=== PATIENT | male | born 1940 | race Caucasian/White ===

== ENCOUNTER 2018-06-08 17:13 | Inpatient (IN) | payer MEDICARE ==
[2018-06-08] MEDS ORDERED: IPRATROPIUM-ALBUTEROL 3 ML NEB INHALATION STA (17:38)
[2018-06-08] MEDS ORDERED: methylPREDNISolone SOD SUCCI 125 MG/2 ML VIAL IV STA (17:38)
--- NOTE | 2018-06-08 17:57 | ED ---
General Adult HPI - General Chief complaint: Shortness of Breath Stated complaint: SOB, abn labs Time Seen by Provider: 06/08/18 17:18 Source: patient, EMS Mode of arrival: EMS Limitations: no limitations - History of Present Illness Initial comments: This 78-year-old white male presents with a complaint of some shortness of breath. He states that it initially occurred at approximately 1 AM today. He did have a cough. He had only very minimal production. He states that he had some midsternal chest pain or pressure associated with this as well. His symptoms seemed to improve at home. He states that he did not take any nitroglycerin. She then went to dialysis today and states that he became very weak during dialysis and had additional chest pain and shortness of breath. He states that he was unable to ambulate afterwards so came to the emergency department at [facility] for further evaluation. They did a full workup at their facility including laboratory, EKGs, echocardiogram, and chest x-ray. They did find that he had an elevated troponin as well as an elevated BNP, a decreased ejection fraction, and signs of congestive heart failure on his chest x-ray. They sent him to our emergency department for further evaluation as his troponin did elevate at their facility. He normally will have his cardiac and nephrology care out of our hospital. He states that he feels much improved at this time. He has no further shortness of breath or chest pain. He is denying any leg pain or swelling. He does relate that he had a partial amputation of his right thumb due to a saw accident this past week. He is seeing Dr. Mcdonough for this. He does relate a long cardiac history with 3 or 4 previous cardiac stents and sees Dr. Negron. He does relate that he has regular stress test but is unsure of the last time that he had a heart catheterization and stent. He states that it is been quite some time. - Related Data Home Medications Medication Instructions Recorded Confirmed Aspirin 325 mg PO Q48H 08/30/14 06/08/18 Atorvastatin [Lipitor] 40 mg PO HS 08/30/14 06/08/18 Clopidogrel [Plavix] 75 mg PO DAILY 08/30/14 06/08/18 Ezetimibe [Zetia] 10 mg PO DAILY 08/30/14 06/08/18 Isosorbide Mononitrate [Imdur] 60 mg PO DAILY 08/30/14 06/08/18 Mesalamine [Asacol Hd] 800 mg PO AC-TID 08/30/14 06/08/18 [place]-3 Fatty Acids/Fish Oil [Fish 1 tab PO BID 08/30/14 06/08/18 Oil 1,000 mg Softgel] Omeprazole [PriLOSEC] 20 mg PO HS 08/30/14 06/08/18 Vit C/E/Zn/Coppr/Lutein/Zeaxan 1 tab PO BID 08/30/14 06/08/18 [Preservision Areds 2 Softgel] Allopurinol [Zyloprim] 100 mg PO BID 06/08/18 06/08/18 Calcium Carb-Vit D 500Mg-200Un 1 tab PO BID 06/08/18 06/08/18 [Oscal 500+D] Carvedilol [Coreg] 6.25 mg PO BID 06/08/18 06/08/18 Allergies Allergy/AdvReac Type Severity Reaction Status Date / Time iron Allergy Nausea & Verified 06/08/18 18:33 Vomiting warfarin sodium Allergy Unknown Verified 06/08/18 18:33 [From Coumadin] Review of Systems ROS Statement: Those systems with pertinent positive or pertinent negative responses have been documented in the HPI. ROS Other: All systems not noted in ROS Statement are negative. 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 Past Anesthesia/Blood Transfusion Reactions: No Reported Reaction Date of Last Stent Placement:: unk Type of Cardiac Device: Permanent Pacemaker, AICD Device Placement Date:: unk Past Psychological History: No Psychological Hx Reported Smoking Status: Former smoker Past Alcohol Use History: None Reported Past Drug Use History: None Reported - Past Family History Mother Family Medical History: Cancer, Diabetes Mellitus, Myocardial Infarction ([place]) Father Family Medical History: CVA/TIA General Exam - General Exam Comments Initial Comments: GENERAL: The patient is well nourished and well hydrated. VITAL SIGNS: Heart rate, blood pressure, respiratory rate reviewed as recorded in nurse's notes. EYES: Pupils are round and reactive. Extraocular movements are intact. No conjunctival / lid redness or swelling. ENT: No external evidence of injury, swelling, or ecchymosis. Airway is patent. Throat is clear. NECK: Nontender. No swelling or evidence of injury. No subcutaneous emphysema. Trachea is midline. No thyroid mass. HEART: Regular rate and rhythm. Good peripheral pulses. No peripheral edema or tenderness noted. LUNGS/CHEST: There is mild wheezing noted bilaterally. No ecchymosis, subcutaneous emphysema, or tenderness. ABDOMEN: Abdomen soft without tenderness. No palpable masses or organomegaly. No peritoneal signs. No abdominal wall swelling or ecchymosis. EXTREMITIES: The patient is a complex bandage noted to his right thumb which is not removed at this time. Normal muscle tone and function. No thoracolumbar tenderness. NEUROLOGIC: Sensation is grossly intact. Cranial nerve exam reveals face is symmetrical, tongue is midline, speech is clear. SKIN: No abrasions or ecchymosis is noted. No induration or masses noted. PSYCHIATRIC: Alert and oriented. Appropriate behavior and judgment. Limitations: no limitations Course Vital Signs 06/08/18 06/08/18 06/08/18 17:20 18:34 18:40 Temperature 98.5 F Pulse Rate 96 97 104 H Respiratory 20 Rate Blood Pressure 101/72 O2 Sat by Pulse 99 Oximetry 06/08/18 06/08/18 19:19 20:20 Temperature 97.9 F Pulse Rate 110 H 110 H Respiratory 19 19 Rate Blood Pressure 119/78 118/73 O2 Sat by Pulse 98 98 Oximetry Medical Decision Making - Medical Decision Making The patient is seen and examined. All diagnostics are reviewed. He is placed on surveillance monitor which appears to show an atrial fibrillation with slight elevation in heart rate. The EKG shows a heart rate of 109 with a atrial fibrillation with rapid ventricular response rhythm. There is a low voltage QRS. There is a QRS duration of 114 and QTc interval of 503. The patient is continued on 2 L of oxygen per nasal cannula. Does appear as though he did receive aspirin at the previous facility. He also receives some Lopressor intravenously at 1452. All records from transferring facility are reviewed as well. It is felt as though he does have a degree of fluid overload/congestive heart failure. He also apparently does have an elevation of his troponin at 0.329 initially and 0.419 afterwards. The creatinine is elevated at 3.9 from [facility]. The BNP is elevated at 145,000. It is felt as though he would require admission to the hospital for further treatment. An additional troponin is ordered and the level is elevated at 0.5. This is increased as compared to the previous 2. He'll be placed on heparin as well. He will require cardiology consultation. The case is discussed with Dr. Canas. He would like us to obtain an echocardiogram at our facility in the a.m. But is otherwise agreeable with current care plan. The case is discussed with Dr. Grant and he is agreeable with admission. It is felt as though the patient overall is quite fragile. He has multiple significant comorbidities. Is felt that he does have a non-ST elevation myocardial infarction as well. He is fluid overload. Nephrology also be consult at for further evaluation in regard to his end-stage renal failure and dialysis. Disposition Clinical Impression: Congestive heart failure, Cardiomyopathy, Dyspnea, Chest pain, Unstable angina , Atrial fibrillation with rapid ventricular response, COPD (chronic obstructive pulmonary disease), NSTEMI (non-ST elevated myocardial infarction), ESRF (end stage renal failure), Amputation of thumb, right Disposition: ADMITTED IP TO THIS HOSP Condition: Fair Is patient prescribed a controlled substance at d/c from ED?: No Time of Disposition: 18:05 Decision Date: 06/08/18 Decision Time: 18:05
[2018-06-08] MEDS ORDERED: NITROGLYCERIN OINT 1 INCH/GM PACKET TOPICAL STA (18:05)
[2018-06-08] MEDS ORDERED: HEPARIN SODIUM,PORCINE 5,000 UNIT/ML 1 ML VIAL IV PRN (18:06)
[2018-06-08] MEDS ORDERED: HEPARIN SODIUM,PORCINE 5,000 UNIT/ML 1 ML VIAL IV ONE (18:06)
[2018-06-08] MEDS ORDERED: HEPARIN SOD,PORK IN 0.45% NACL 25,000 UNIT in 0.45% NACL 1 250ML.BAG IV SCH (18:15)
[2018-06-08] MEDS ORDERED: NITROGLYCERIN SL TABS 0.4 MG TAB SUBLINGUAL PRN (18:27)
[2018-06-08] MEDS ORDERED: ASPIRIN 325 MG TAB PO SCH (18:45)
[2018-06-08] MEDS ORDERED: NON-FORMULARY DRUG (Omega-3 Fatty Acids/Fish Oil [Fish Oil 1,000 Mg Softgel] 1 TAB) PO SCH (21:00)
[2018-06-09] MEDS: CALCIUM CARB-VIT D 500MG-200UN 1 EACH TAB PO SCH ×3 (00:14→19:51)
[2018-06-09] MEDS: VIT A,C & E-LUTEIN-MINERALS 1 EACH TAB PO SCH ×3 (00:14→19:56)
[2018-06-09] MEDS: ATORVASTATIN 40 MG TAB PO SCH ×2 (00:14→19:51)
[2018-06-09] MEDS: ALLOPURINOL 100 MG TAB PO SCH ×3 (00:15→19:56)
--- NOTE | 2018-06-09 00:43 | HP ---
HISTORY AND PHYSICAL DATE OF ADMISSION: 06/08/2018. DATE OF SERVICE: 06/08/2018. PRESENT COMPLAINT: Short of breath. HISTORY OF PRESENTING COMPLAINT: This is a pleasant 78-year-old patient Dr. Arellano with an extensive medical history. Chronic stable medical conditions include end-stage kidney disease on hemodialysis Thursday, , Thursday, osteoarthritis, atrial fibrillation, mineral bone disease, diabetes, peripheral neuropathy, anxiety, hyperlipidemia, coronary artery disease with stent, permanent pacemaker. The patient lives alone. Does use a walker to get about. The patient was getting hemodialyzed today and became short of breath, congested, and 911 was called. The patient presented to [facility]. He had no chest pain. Chest x- ray showed mild congestive heart failure. Troponin was 0.329. EKG showed sinus rhythm, atrial fibrillation, and patient was transferred down here. Cardiology and Nephrology were consulted. The patient, for the last 2 days, has had decreased appetite, tired and run down. Denies any fevers or chills. REVIEW OF SYSTEMS: CONSTITUTIONAL: Tired. HEENT: Decreased hearing. RESPIRATORY: As above. CARDIOVASCULAR: As above. No edema. GASTROINTESTINAL: None. MUSCULOSKELETAL: Some pain in the joints. DERMATOLOGIC: Chronic bruising. HEMATOLOGIC: Chronic bruising. PSYCHIATRY: Slightly forgetful. NEUROLOGIC: Just generalized weakness. Uses a walker. PAST MEDICAL HISTORY: Congestive heart failure, EF 20%, end-stage kidney disease on hemodialysis Thursday, , and Thursday, failed peritoneal dialysis, osteoarthritis, atrial fibrillation, mineral bone disease, diabetes, peripheral neuropathy, hyperlipidemia, anxiety, coronary artery with stent, permanent pacemaker, gout. PAST SURGICAL HISTORY: AICD, back surgery, cardiac cath with stent, pacemaker, back surgery, knee surgery, carpal tunnel, right carotid endarterectomy, left knee arthroscopic, nonmalignant tumor removed from left , polyps removal, right eye cataract removed, amputation of distal right thumb due to a saw injury by [facility], permanent pacemaker, AICD. SOCIAL HISTORY: Lives alone. is in and the rehab. Uses a walker, tolerate handles. The patient smoked for 45 years 1 pack a day, stopped in 2000 no alcohol. FAMILY HISTORY: Diabetes, heart attack, cancer. HOME MEDICATIONS: 1. Preservision 1 tablet p.o. b.i.d. 2. Prilosec 20 mg at bedtime. 3. Fish oil 1000 mg 1 tablet b.i.d. 4. Asacol 800 mg t.i.d. 5. Imdur 60 mg a day. 6. Zetia 10 mg a day. 7. Plavix 75 mg a day. 8. Coreg 6.25 mg b.i.d. 9. Os-Diony 500 with D 1 tablet p.o. b.i.d. 10.Lipitor 40 mg at bedtime. 11.Aspirin 325 p.o. every 48 hours. 12.Allopurinol 100 mg b.i.d. ALLERGIES: IRON, WARFARIN. PHYSICAL EXAMINATION: Temperature 98.5, pulse 97, respirations 20, blood pressure 101/72, pulse 99% on nasal cannula,. GENERAL APPEARANCE: Thin built, lying in bed, tired-appearing. EYES: Pupils equal. Conjunctivae pale. HEENT: External appearance of nose and ears normal. Oral cavity dry. JVD unable to assess. Mass not palpable. RESPIRATORY: Effort increased. LUNGS: Diminished breath sounds. CARDIOVASCULAR: Heart sounds irregular. No edema. ABDOMEN: Soft, nontender. Liver and spleen not palpable. LYMPHATIC: No lymph node palpable in the neck or axillae. PSYCHIATRY: Alert and oriented x3. Mood and affect slightly anxious-appearing. NEUROLOGICAL: Pupils equal. Cranial nerves grossly intact power sensation grossly intact. DERMATOLOGIC: Diffuse dry skin and bruising. Right upper extremity has got a graft in place. INVESTIGATIONS: Blood work from [facility] showed a potassium 4.6, BUN 26, creatinine 3.9. Troponin 0.329. EKG was sinus rhythm with LVH. Hemoglobin 4.1, platelets 126,000. Chest x-ray showed mild congestive heart failure. ASSESSMENT: 1. Acute on chronic congestive heart failure exacerbation from systolic dysfunction from congestive heart failure, EF 20% from underlying coronary artery disease. 2. End-stage kidney disease on hemodialysis Thursday, , and Thursday. 3. Primary osteoarthritis. 4. Persistent atrial fibrillation. 5. Chronic kidney disease with mineral bone disease. 6. Peripheral neuropathy, cause unknown. 7. Hyperlipidemia. 8. Anxiety, not otherwise specified. 9. Coronary artery disease with prior history of stent. 10.AICD with permanent pacemaker. 11.Chronic gout. 12.Chronic gait dysfunction, uses a walker. PLAN: Home medications are resumed. Cardiology was consulted, so was Nephrology. The patient will resume hemodialysis schedule. The patient may need an extra treatment tomorrow. Care was discussed with the patient. Questions were answered. Prognosis is guarded. MMJOSEL / IJN: [id number] /
[2018-06-09] MEDS: NITROGLYCERIN OINT 1 INCH/GM PACKET TOPICAL SCH ×2 (02:17→06:48)
[2018-06-09] MEDS: BALSALAZIDE DISODIUM 750 MG CAPSULE PO SCH ×3 (06:47→21:57)
[2018-06-09 06:49] LABS: Cholesterol 132 mg/dL (<200); HDL Cholesterol 36 mg/dL (40-60); LDL Cholesterol,Calculated 72 mg/dL (0-99); Triglycerides 122 mg/dL (<150)
[2018-06-09] MEDS ORDERED: CARVEDILOL 6.25 MG TAB PO SCH (07:30)
[2018-06-09 07:40] LABS: Basophils % (A) 0 %; Eosinophils % (A) 0 %; HGB 13.5 gm/dL (13.0-17.5); Hypochromasia Moderate; Lymphocytes # (A) 0.2 k/uL (1.0-4.8); Lymphocytes % (A) 4 %; MCH 32.2 pg (25.0-35.0); MCHC 30.8 g/dL (31.0-37.0); MCV 104.5 fL (80.0-100.0); Macrocytosis Moderate; Mean Platelet Volume 7.6; Monocytes # (A) 0.1 k/uL (0-1.0); Monocytes % (A) 2 %; Neutrophils # (A) 4.6 k/uL (1.3-7.7); Neutrophils % (A) 93 %; Platelet Count 129 k/uL (150-450); RBC 4.21 m/uL (4.30-5.90); RDW 14.9 % (11.5-15.5)
[2018-06-09] MEDS ORDERED: ASPIRIN 325 MG TAB PO SCH (09:00)
--- NOTE | 2018-06-09 09:05 | P.CRDCN ---
History of Present Illness Consult date: 06/09/18 Requesting physician: Yuri Grant Consult reason: chest pain, shortness of breath Chief complaint: Shortness of breath, weakness History of present illness: This is a pleasant 78-year-old gentleman who follows regularly with Dr. Negron in the office. He has a known history of coronary artery disease with prior myocardial infarction and stenting of the circumflex and PDA in 2002. Patient also has known history of ischemic cardiomyopathy with prior AICD implantation, hypertension, diabetes, atrial fibrillation, hyperlipidemia, end-stage renal disease on hemodialysis. The patient was transferred here from [facility]. According to the patient, he's been getting progressively more and more weak, his appetite has been extremely poor. Over the past few days, patient states that he's been noticing himself to be more short of breath than usual and he feels congested in his chest. He does state that a few days ago he had some intermittent chest discomfort off and on. His main complaint however is his progressive weakness. He presented to [facility], laboratory data performed there showed a white blood cell count is 7.3, hemoglobin 14, hematocrit 45, platelet count 126. Sodium 142, potassium 4.6, BNP level 141,000, BUN 26, creatinine 3.9, troponin 0.3 chest x-ray was also performed there which showed pulmonary vascular congestion likely related to decompensated congestive heart failure. Patient does currently have a soft cast in place to his right wrist, he states that he was using his soft just around Thanksgiving time when he cut off a large section of his right thumb, he did recently undergo amputation of the thumb by Dr. Whaley. EKG performed at [facility] shows atrial fibrillation with nonspecific ST-T wave changes. Because of the abnormality in the BNP level in troponin patient was advised transfer here for further treatment. Blood pressure here 90/60, heart rate in the 90s, 92% on room air. Repeat troponins were performed here, 0.5 and 0.4. At the time of my examination this morning, patient is comfortable, sitting at the edge of his bed, denies any chest discomfort, still complains of some shortness of breath. Very weak. 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, lower partials,hx of afib, pvd,bronchitis, sinus problems, renal insufficiency, psoriasis, neuropathy,djd, anemia, skin cancer, past treatment for dm now diet controlled no meds but checks bs once a day, esrd-hemodialysis t-th-sat Last Myocardial Infarction Date:: 2014 History of Any Multi-Drug Resistant Organisms: None Reported Past Surgical History: AICD, Back Surgery, Heart Catheterization With Stent, Orthopedic Surgery, Pacemaker Additional Past Surgical History / Comment(s): back surgery, knee surgery, carpal tunnel, rt carortid endarterectomy,lt knee arthroscopy(pt not sure if he had it replaced)non malignant tumor removed from lt hip, colonoscopy -polyps removed benign.rt eye cataract removed", amp rt thumb d/t inj, dialysis port rt ac"covered with bandage.no bp in rt arm. Past Anesthesia/Blood Transfusion Reactions: No Reported Reaction Additional Past Anesthesia/Blood Transfusion Reaction / Comment(s): past blood transfusions-no reaction Date of Last Stent Placement:: unk Type of Cardiac Device: Permanent Pacemaker, AICD Device Placement Date:: unk Smoking Status: Former smoker - Past Family History Mother Family Medical History: Cancer, Diabetes Mellitus, Myocardial Infarction ([place]) Father Family Medical History: CVA/TIA Medications and Allergies Home Medications Medication Instructions Recorded Confirmed Type Aspirin 325 mg PO Q48H 08/30/14 06/08/18 History Atorvastatin [Lipitor] 40 mg PO HS 08/30/14 06/08/18 History Clopidogrel [Plavix] 75 mg PO DAILY 08/30/14 06/08/18 History Ezetimibe [Zetia] 10 mg PO DAILY 08/30/14 06/08/18 History Isosorbide Mononitrate [Imdur] 60 mg PO DAILY 08/30/14 06/08/18 History Mesalamine [Asacol Hd] 800 mg PO AC-TID 08/30/14 06/08/18 History [place]-3 Fatty Acids/Fish Oil [Fish 1 tab PO BID 08/30/14 06/08/18 History Oil 1,000 mg Softgel] Omeprazole [PriLOSEC] 20 mg PO HS 08/30/14 06/08/18 History Vit C/E/Zn/Coppr/Lutein/Zeaxan 1 tab PO BID 08/30/14 06/08/18 History [Preservision Areds 2 Softgel] Allopurinol [Zyloprim] 100 mg PO BID 06/08/18 06/08/18 History Calcium Carb-Vit D 500Mg-200Un 1 tab PO BID 06/08/18 06/08/18 History [Oscal 500+D] Carvedilol [Coreg] 6.25 mg PO BID 06/08/18 06/08/18 History Allergies Allergy/AdvReac Type Severity Reaction Status Date / Time iron Allergy Nausea & Verified 06/08/18 18:33 Vomiting warfarin sodium Allergy Unknown Verified 06/08/18 18:33 [From Coumadin] Physical Exam Vitals: Vital Signs Temp Pulse Pulse Resp BP BP Pulse Ox 06/09/18 04:00 97.8 F 98 17 90/62 92 L 06/09/18 00:00 97.4 F L 103 H 18 92/57 94 L 06/08/18 22:30 98.2 F 103 H 19 96/62 98 06/08/18 20:20 110 H 19 118/73 98 06/08/18 20:00 97.8 F 106 H 17 99/61 91 L 06/08/18 19:19 97.9 F 110 H 19 119/78 98 06/08/18 18:40 104 H 06/08/18 18:34 97 06/08/18 17:20 98.5 F 96 20 101/72 99 Intake and Output 06/08/18 06/09/18 06/09/18 22:59 06:59 14:59 Intake Total 78.197 Balance 78.197 Intake: Intake, IV Titration 78.197 Amount Heparin Sod,Pork in 0.45% 78.197 NaCl 25,000 unit In 0.45 % NaCl 1 250ml.bag @ 12 UNITS/KG/HR 7.07 mls/hr IV .Q24H [facility] Rx#: [id number] Other: Weight 58.967 kg 58.6 kg PHYSICAL EXAMINATION: GENERAL: 78-year-old gentleman in no acute distress at the time of my examination HEENT: Head is atraumatic, normocephalic. Pupils equal, round. Sclera anicteric. Conjunctiva are clear. Mucous membranes of the mouth are moist. Neck is supple. There is no elevated jugular venous pressure. No carotid bruit is heard. HEART EXAMINATION: Heart S1 and S2 irregularly irregular CHEST EXAMINATION: Lungs reveal diminished air entry to bilateral bases. ABDOMEN: Soft, nontender. Bowel sounds are heard. No organomegaly noted. EXTREMITIES: 1+ peripheral pulses with no evidence of peripheral edema and no calf tenderness noted. Soft cast is present on right wrist NEUROLOGIC patient is awake, alert and oriented 3 . . Results 06/09/18 06:22 Cardiac Enzymes 06/08/18 06/09/18 Range/Units 19:12 00:27 Troponin I 0.547 H* 0.441 H* (0.000-0.034) ng/mL Coagulation 06/08/18 06/09/18 06/09/18 Range/Units 19:12 00:27 06:22 APTT 31.5 H 37.5 H 48.5 H (22.0-30.0) sec Lipids 06/09/18 Range/Units 06:22 Triglycerides 122 (<150) mg/dL Cholesterol 132 (<200) mg/dL HDL Cholesterol 36 L (40-60) mg/dL CBC 06/09/18 Range/Units 06:22 WBC 5.0 (3.8-10.6) k/uL RBC 4.21 L (4.30-5.90) m/uL Hgb 13.5 (13.0-17.5) gm/dL Hct 44.0 (39.0-53.0) % Plt Count 129 L (150-450) k/uL Current Medications Generic Name Dose Route Start Last Admin Trade Name Freq PRN Reason Stop Dose Admin Allopurinol 100 mg 06/08/18 21:00 06/09/18 00:15 Zyloprim PO Not Given BID ANITA Aspirin 325 mg 06/09/18 09:00 Aspirin PO DAILY ANITA Atorvastatin Calcium 40 mg 06/08/18 21:00 06/09/18 00:14 Lipitor PO 40 mg HS ANITA Administration Balsalazide 2,250 mg 06/09/18 07:30 06/09/18 06:47 Colazal PO 2,250 mg AC-TID ANITA Administration Calcium Carbonate 1 each 06/08/18 21:00 06/09/18 00:14 Oscal 500+D PO 1 each BID [facility] Administration Carvedilol 6.25 mg 06/09/18 07:30 06/09/18 06:47 Coreg PO 6.25 mg BID-W/MEALS ANITA Administration Clopidogrel Bisulfate 75 mg 06/09/18 09:00 Plavix PO DAILY [facility] Ezetimibe 10 mg 06/09/18 09:00 Zetia PO DAILY [facility] Heparin Sodium (Porcine) 0 unit 06/08/18 18:06 Heparin IV PER PROTOCOL PRN Low PTT Protocol Heparin Sodium/Sodium Chloride 250 mls @ 7.07 mls/hr 06/08/18 18:15 06/09/18 02:17 25,000 unit/ Sodium Chloride IV 15 units/kg/hr .Q24H ANITA 8.84 mls/hr Titration Protocol 12 UNITS/KG/HR Isosorbide Mononitrate 60 mg 06/09/18 09:00 Imdur PO DAILY [facility] Multivitamins/Minerals 1 each 06/08/18 21:00 06/09/18 00:14 Ivite PO 1 each BID [facility] Administration Nitroglycerin 1 inch 06/09/18 00:00 06/09/18 06:48 Nitro-Bid Oint TOPICAL Not Given Q6HR [facility] Nitroglycerin 0.4 mg 06/08/18 18:27 Nitrostat SUBLINGUAL Q5M PRN Chest Pain Pantoprazole Sodium 40 mg 06/09/18 21:00 Protonix PO HS [facility] Intake and Output 06/08/18 06/09/18 06/09/18 22:59 06:59 14:59 Intake Total 78.197 Balance 78.197 Intake: Intake, IV Titration 78.197 Amount Heparin Sod,Pork in 0.45% 78.197 NaCl 25,000 unit In 0.45 % NaCl 1 250ml.bag @ 12 UNITS/KG/HR 7.07 mls/hr IV .Q24H [facility] Rx#: [id number] Other: Weight 58.967 kg 58.6 kg 06/09/18 06:22 EKG Interpretations (text) EKG shows atrial fibrillation with nonspecific ST-T wave changes Assessment and Plan Plan: Assessment and plan #1 symptoms of progressively worsening shortness of breath over 3 day duration, systolic congestive heart failure acute on chronic #2 chronic persistent atrial fibrillation, not on anticoagulation, patient did have a history of bleeding in the past on Coumadin, he refuses anticoagulation #3 end-stage renal failure on hemodialysis #4 diabetes #5 hypertension #6 hyperlipidemia #7 known history of coronary artery disease stent placement #8 ischemic cardiomyopathy with prior AICD implantation #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 Plan We will obtain Dr. Negron's office note, patient does not make urine, he may require dialysis well he's here. We will continue maximal medical therapy. We will reduce his aspirin to 81 mg, continue Coreg, Plavix, Zetia, discontinue Nitropaste. DNP note has been reviewed, I agree with a documented findings and plan of care. Patient was seen and examined.
--- NOTE | 2018-06-09 11:31 | ECHOF ---
Referral Reason:cp and sob MEASUREMENTS -------- HEIGHT: 167.6 cm WEIGHT: 58.5 kg BP: 90/62 RVIDd: 3.8 cm (< 3.3) IVSd: 1.1 cm (0.6 - 1.1) LVIDd: 5.3 cm (3.9 - 5.3) LVPWd: 1.2 cm (0.6 - 1.1) IVSs: 1.4 cm LVIDs: 4.9 cm LVPWs: 1.2 cm LAESV Index (A-L): 72.94 ml/m Ao Diam: 2.8 cm (2.0 - 3.7) AV Cusp: 1.7 cm (1.5 - 2.6) LA Diam: 3.5 cm (2.7 - 3.8) MV EXCURSION: 10.325 mm (> 18.000) MV EF SLOPE: 58 mm/s (70 - 150) EPSS: 1.5 cm MV E Miguel: 0.97 m/s MV DecT: 165 ms MV A Miguel: 0.22 m/s MV E/A Ratio: 4.37 AV maxP.29 mmHg AV meanP.77 mmHg AR PHT: 513 ms RAP: 15.00 mmHg RVSP: 65.63 mmHg FINDINGS -------- Paced rhythm. AICD This was a technically good study. The left ventricular size is normal. There is borderline concentric left ventricular hypertrophy. There is severe global hypokinesis of LV . Overall left ventricular systolic function is severely impaired with, an EF between 20 - 25 %. The right ventricle is mild to moderately enlarged. LA is severely dilated >40 ml/m2 The right atrial size is normal. Aortic valve is trileaflet and is mildly thickened. Trace amount of aortic regurgitation. Peak/m valentina gradient across the Aortic Valve is 9.29mmHg / 5.77mmHg. The mitral valve leaflets are mildly thickened. Mild mitral annular calcification present. Mild m itral regurgitation is present. Severe tricuspid regurgitation present. There is moderate to severe pulmonary hypertension. The r ight ventricular systolic pressure, as measured by Doppler, is 65.63mmHg. Pulmonic valve appears structurally normal. Possible thrombus in the LV apex. The aortic root size is normal. The inferior vena cava is moderately dilated. The pericardium is normal. CONCLUSIONS -------- 1. Paced rhythm. 2. AICD 3. This was a technically good study. 4. The left ventricular size is normal. 5. There is borderline concentric left ventricular hypertrophy. 6. There is severe global hypokinesis of LV . 7. Overall left ventricular systolic function is severely impaired with, an EF between 20 - 25 %. 8. The right ventricle is mild to moderately enlarged. 9. LA is severely dilated >40 ml/m2 10. The right atrial size is normal. 11. Aortic valve is trileaflet and is mildly thickened. 12. Trace amount of aortic regurgitation. 13. Peak/mean gradient across the Aortic Valve is 9.29mmHg / 5.77mmHg. 14. The mitral valve leaflets are mildly thickened. 15. Mild mitral annular calcification present. 16. Mild mitral regurgitation is present. 17. Severe tricuspid regurgitation present. 18. There is moderate to severe pulmonary hypertension. 19. The right ventricular systolic pressure, as measured by Doppler, is 65.63mmHg. 20. Pulmonic valve appears structurally normal. 21. Possible thrombus in the LV apex. 22. The aortic root size is normal. 23. The inferior vena cava is moderately dilated. 24. The pericardium is normal. DESIGN CONSULTANT: Emily Allison RDCS
[2018-06-09 13:42] LABS: Calcium 8.9 mg/dL (8.4-10.2); Potassium 5.3 mmol/L (3.5-5.1)
--- NOTE | 2018-06-09 16:35 | P.PN ---
Subjective 78-year-old gentleman with known history of congestive heart failure ejection fraction of 20% on hemodialysis came in with compensative shortness of breath found to be in failure exacerbation. Patient believes his heart failure is secondary to not remove enough fluid and on some of the days at the dialysis place. The probable reason being patient the blood pressure is being on the low normal side because of his poor ejection fraction. Patient does have history of atrial fibrillation decline anti-correlation the past. Patient is presently on Coreg. Coreg is being switched to metoprolol because of his low blood pressures which is leading to insufficient hemodialysis. Patient says he takes a medication before hemodialysis. On exam patient has a significant wheezing did have a smoking history but was never diagnosed with COPD. I'll start him on breathing treatments, obtain chest x-ray which is not available at this time. She doesn't have any pedal edema and although does have elevated JVD. Patient states he is still short of breath patient underwent hemodialysis yesterday and as per the patient they're planning on dialyzing him today as well as tomorrow. Constitutional: Denied any fatigue denied any fever. Cardio vascular: denied any chest pain, palpitations Gastrointestinal denied any nausea vomiting Pulmonary: As mentioned in HPI Neurologic denied any new focal deficits All inpatient medications were reviewed and appropriate changes in these medications as dictated in the interval history and assessment and plan. Objective - Vital Signs Vital signs: Vital Signs Temp 97.8 F 06/09/18 04:00 Pulse 91 06/09/18 16:00 Resp 18 06/09/18 16:00 BP 93/56 06/09/18 16:00 Pulse Ox 94 L 06/09/18 16:00 Intake & Output 06/08/18 06/09/18 06/09/18 18:59 06:59 18:59 Intake Total 78.197 470 Balance 78.197 470 Weight 58.967 kg 58.6 kg Intake: Intake, IV Titration 78.197 Amount Heparin Sod,Pork in 0.45% 78.197 NaCl 25,000 unit In 0.45 % NaCl 1 250ml.bag @ 12 UNITS/KG/HR 7.07 mls/hr IV .Q24H ANITA Rx#: [id number] Oral 470 Other: # Voids 1 - Exam PHYSICAL EXAMINATION: GENERAL: The patient is alert and oriented x3, not in any acute distress. Thin built gentleman HEENT: Pupils are round and equally reacting to light. EOMI. No scleral icterus. No conjunctival pallor. Normocephalic, atraumatic. No pharyngeal erythema. No thyromegaly. CARDIOVASCULAR: S1 and S2 present. No murmurs, rubs, or gallops. PULMONARY: Expiratory wheezing mild rhonchus breath sounds bibasilar crackles ABDOMEN: Soft, nontender, nondistended, normoactive bowel sounds. No palpable organomegaly. MUSCULOSKELETAL: No joint swelling or deformity. EXTREMITIES: No cyanosis, clubbing, or pedal edema. NEUROLOGICAL: Gross neurological examination did not reveal any focal deficits. SKIN: No rashes. - Labs CBC & Chem 7: 06/09/18 06:22 06/09/18 06:22 Labs: Abnormal Lab Results - Last 24 Hours (Table) 06/08/18 06/08/18 06/09/18 Range/Units 19:12 19:12 00:27 RBC (4.30-5.90) m/uL MCV (80.0-100.0) fL MCHC (31.0-37.0) g/dL Plt Count (150-450) k/uL Lymphocytes # (1.0-4.8) k/uL APTT 31.5 H 37.5 H (22.0-30.0) sec Potassium (3.5-5.1) mmol/L Chloride (98-107) mmol/L Carbon Dioxide (22-30) mmol/L BUN (9-20) mg/dL Creatinine (0.66-1.25) mg/dL Glucose (74-99) mg/dL Troponin I 0.547 H* (0.000-0.034) ng/mL HDL Cholesterol (40-60) mg/dL 06/09/18 06/09/18 06/09/18 Range/Units 00:27 06:22 06:22 RBC 4.21 L (4.30-5.90) m/uL MCV 104.5 H (80.0-100.0) fL MCHC 30.8 L (31.0-37.0) g/dL Plt Count 129 L (150-450) k/uL Lymphocytes # 0.2 L (1.0-4.8) k/uL APTT (22.0-30.0) sec Potassium (3.5-5.1) mmol/L Chloride (98-107) mmol/L Carbon Dioxide (22-30) mmol/L BUN (9-20) mg/dL Creatinine (0.66-1.25) mg/dL Glucose (74-99) mg/dL Troponin I 0.441 H* (0.000-0.034) ng/mL HDL Cholesterol 36 L (40-60) mg/dL 06/09/18 06/09/18 Range/Units 06:22 06:22 RBC (4.30-5.90) m/uL MCV (80.0-100.0) fL MCHC (31.0-37.0) g/dL Plt Count (150-450) k/uL Lymphocytes # (1.0-4.8) k/uL APTT 48.5 H (22.0-30.0) sec Potassium 5.3 H (3.5-5.1) mmol/L Chloride 97 L (98-107) mmol/L Carbon Dioxide 21 L (22-30) mmol/L BUN 47 H (9-20) mg/dL Creatinine 4.82 H (0.66-1.25) mg/dL Glucose 153 H (74-99) mg/dL Troponin I (0.000-0.034) ng/mL HDL Cholesterol (40-60) mg/dL Assessment and Plan Plan: -Short as of breath: probably secondary to congestive heart failure chronic systolic dysfunction with acute exacerbation and insufficient hemodialysis as mentioned above patient will undergo hemodialysis 3 days in a row. -Atrial fibrillation, mild rapid ventricular rate: Because of low normal blood pressures because of very low ejection fraction patient will be switched to metoprolol rather than Coreg. Patient declined any anticoagulation patient has an AICD -End-stage renal disease, Hemo dialysis dependent. Patient's regular hemodialysis sessions or Thursday and Thursday -Hyperlipidemia -Coronary artery disease -Peripheral neuropathy chronic -Coronary artery disease with prior stents
--- NOTE | 2018-06-09 16:56 | XR ---
EXAMINATION TYPE: XR chest 1V DATE OF EXAM: 06/09/2018 COMPARISON: June 08, 2018 HISTORY: Heart failure TECHNIQUE: Single frontal view of the chest is obtained. FINDINGS: Heart is enlarged. There is mild congestion. There is left axillary pacemaker with the sotero d tips in the right ventricle. There are chest leads. There is mild pulmonary interstitial edema. IMPRESSION: Mild heart failure appears unchanged compared to yesterday.
[2018-06-09] MEDS ORDERED: MIDODRINE 5 MG TAB PO PRN (17:13)
[2018-06-09] MEDS ORDERED: MIDODRINE 5 MG TAB PO STA (17:16)
[2018-06-09] MEDS: ISOSORBIDE MONONITRATE ER 60 MG TAB.ER.24H PO SCH (17:17)
[2018-06-09] MEDS ORDERED: GELATIN SPONGE,ABSORB (LARGE) 1 EACH SPONGE ONE (18:40)
[2018-06-09] MEDS: SYMBICORT 160-4.5 MCG INHALER INHALATION SCH (19:19)
--- NOTE | 2018-06-09 19:29 | CONS ---
CONSULTATION REASON FOR CONSULT: End-stage renal disease. HISTORY OF PRESENT ILLNESS: The patient is a 78-year-old male with a history of end-stage renal disease, on hemodialysis on a Thursday, , Thursday schedule at [facility]. He was admitted to the hospital with complaints of shortness of breath. The patient did not miss any of his treatments. He states that they with may have been taking off less fluid at the dialysis unit. The patient has recently had surgery on his right hand and it looks like he had an amputation of his thumb. This was related to trauma. He did have ischemic changes as well. Currently, patient denies any fever or chills. No cough, nausea, vomiting or diarrhea. PAST MEDICAL HISTORY: End-stage renal disease, hypertension, coronary artery disease, ischemic cardiomyopathy, type 2 diabetes, chronic atrial fibrillation. 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 SOCIAL HISTORY: Patient is a former smoker. No history of drug abuse or alcohol abuse. MEDICATIONS: Medications at home prior to admission included Lipitor, Plavix, Zetia, Imdur, Asacol, Prilosec, Zyloprim, Coreg, calcium, vitamin D. ALLERGIES: Include iron, which causes nausea, vomiting and Coumadin. REVIEW OF SYSTEMS: As per HPI. Other systems negative. PHYSICAL EXAMINATION: Patient is comfortable, awake, is not in any acute distress. He is alert and oriented x3. Blood pressure this morning 80/54, heart rate of 77 per minute. Patient is afebrile. Examination of the heart S1, S2. Examination of the lungs bilateral breath sounds are heard. Bilateral basal crackles are heard. Abdomen is soft, nontender. Examination lower extremities shows edema 1+ bilaterally. 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 LABS SHOW: Sodium 139, potassium 5.3, hemoglobin 13.5, serum creatinine 4.82. Troponin 0.547. ASSESSMENT: 1. End-stage renal disease on hemodialysis on a Thursday, , Thursday schedule. The patient will be dialyzed today as an extra treatment for fluid overload. 2. Volume overload. I will dialyze the patient today with UF for about 2 hours. 3. Mild hyperkalemia. Expect improvement with hemodialysis today. The patient will have a full treatment of hemodialysis tomorrow. 4. Coronary artery disease. 5. Ischemic cardiomyopathy, ejection fraction done today shows 20-25 percent ejection fraction. There is a possible thrombus in the left ventricular apex. PLAN: Hemodialysis in a.m. We will do ultrafiltration today for volume overload. Hold off on antihypertensive medications because of low blood pressure. We will maintain the patient on midodrine as well. Thank you for this consultation. We will continue to follow the patient with you during his hospitalization. MMJOSEL / IJN: [id number] /
[2018-06-09] MEDS: PANTOPRAZOLE 40 MG TABLET PO SCH (19:51)
[2018-06-09] MEDS: CLOPIDOGREL 75 MG TAB PO SCH (19:56)
[2018-06-09] MEDS: EZETIMIBE 10 MG TAB PO SCH (19:56)
[2018-06-09] MEDS: METOPROLOL TARTRATE 50 MG TAB PO SCH (21:58)
[2018-06-10] MEDS: BALSALAZIDE DISODIUM 750 MG CAPSULE PO SCH ×3 (06:59→16:32)
[2018-06-10] MEDS: MIDODRINE 5 MG TAB PO PRN (08:10)
[2018-06-10] MEDS: SYMBICORT 160-4.5 MCG INHALER INHALATION SCH ×2 (08:34→20:02)
[2018-06-10 08:37] LABS: Basophils % (A) 0 %; Eosinophils % (A) 0 %; HCT 42.3 % (39.0-53.0); HGB 13.2 gm/dL (13.0-17.5); Lymphocytes # (A) 0.4 k/uL (1.0-4.8); Lymphocytes % (A) 5 %; MCH 31.7 pg (25.0-35.0); MCHC 31.2 g/dL (31.0-37.0); MCV 101.5 fL (80.0-100.0); Macrocytosis Slight; Mean Platelet Volume 7.9; Monocytes # (A) 0.4 k/uL (0-1.0); Monocytes % (A) 5 %; Neutrophils # (A) 8.4 k/uL (1.3-7.7); Neutrophils % (A) 90 %; Platelet Count 176 k/uL (150-450); RBC 4.16 m/uL (4.30-5.90); RDW 14.9 % (11.5-15.5); WBC 9.4 k/uL (3.8-10.6)
[2018-06-10 08:40] LABS: Calcium 8.6 mg/dL (8.4-10.2); Potassium 4.7 mmol/L (3.5-5.1)
[2018-06-10] MEDS: ISOSORBIDE MONONITRATE ER 60 MG TAB.ER.24H PO SCH (11:16)
[2018-06-10] MEDS: CALCIUM CARB-VIT D 500MG-200UN 1 EACH TAB PO SCH ×2 (11:32→20:55)
[2018-06-10] MEDS: EZETIMIBE 10 MG TAB PO SCH (11:32)
[2018-06-10] MEDS: ALLOPURINOL 100 MG TAB PO SCH ×2 (11:32→20:55)
[2018-06-10] MEDS: CLOPIDOGREL 75 MG TAB PO SCH (11:32)
[2018-06-10] MEDS: ASPIRIN 81 MG PO SCH (11:32)
[2018-06-10] MEDS: VIT A,C & E-LUTEIN-MINERALS 1 EACH TAB PO SCH ×2 (11:32→20:56)
[2018-06-10] MEDS: METOPROLOL TARTRATE 50 MG TAB PO SCH (11:39)
[2018-06-10] MEDS: IPRATROPIUM-ALBUTEROL 3 ML NEB INHALATION PRN ×3 (11:43→20:02)
--- NOTE | 2018-06-10 12:25 | P.PN ---
Subjective Progress Note Date: 06/10/18 This is a pleasant 78-year-old gentleman who follows regularly with Dr. Negron in the office. He has a known history of coronary artery disease with prior myocardial infarction and stenting of the circumflex and PDA in 2002. Patient also has known history of ischemic cardiomyopathy with prior AICD implantation, hypertension, diabetes, atrial fibrillation, hyperlipidemia, end-stage renal disease on hemodialysis. The patient was transferred here from [facility]. According to the patient, he's been getting progressively more and more weak, his appetite has been extremely poor. Over the past few days, patient states that he's been noticing himself to be more short of breath than usual and he feels congested in his chest. He does state that a few days ago he had some intermittent chest discomfort off and on. His main complaint however is his progressive weakness. He presented to [facility], laboratory data performed there showed a white blood cell count is 7.3, hemoglobin 14, hematocrit 45, platelet count 126. Sodium 142, potassium 4.6, BNP level 141,000, BUN 26, creatinine 3.9, troponin 0.3 chest x-ray was also performed there which showed pulmonary vascular congestion likely related to decompensated congestive heart failure. Patient does currently have a soft cast in place to his right wrist, he states that he was using his soft just around Thanksgiving time when he cut off a large section of his right thumb, he did recently undergo amputation of the thumb by Dr. Whaley. EKG performed at [facility] shows atrial fibrillation with nonspecific ST-T wave changes. Because of the abnormality in the BNP level in troponin patient was advised transfer here for further treatment. Blood pressure here 90/60, heart rate in the 90s, 92% on room air. Repeat troponins were performed here, 0.5 and 0.4. At the time of my examination this morning, patient is comfortable, sitting at the edge of his bed, denies any chest discomfort, still complains of some shortness of breath. Very weak. 06/10/2018 Patient seen and examined this morning, feels much more weeks today, much more short of breath. He does have wishes to be a DO NOT RESUSCITATE is reflected in his chart. He did undergo dialysis today, they removed 3 L. Blood pressure 90/50 with a heart rate in the 80s, 93% on room air. White blood cell count 9.4 , hemoglobin 13.2, platelet count 176. Sodium 138, potassium 4.7, BUN 71 and creatinine 6.2. Objective - Vital Signs Vital signs: Vital Signs Temp 97.1 F L 06/10/18 12:08 Pulse 88 06/10/18 12:08 Resp 18 06/10/18 12:08 BP 89/51 06/10/18 12:08 Pulse Ox 93 L 06/10/18 12:08 Intake & Output 06/09/18 06/10/18 06/10/18 18:59 06:59 18:59 Intake Total 470 220 Balance 470 220 Weight 58 kg Intake: Oral 470 220 Other: # Voids 1 0 # Bowel Movements 1 - Exam PHYSICAL EXAMINATION: GENERAL: 78-year-old gentleman in no acute distress at the time of my examination HEENT: Head is atraumatic, normocephalic. Pupils equal, round. Sclera anicteric. Conjunctiva are clear. Mucous membranes of the mouth are moist. Neck is supple. There is no elevated jugular venous pressure. No carotid bruit is heard. HEART EXAMINATION: Heart S1 and S2 irregularly irregular CHEST EXAMINATION: Lungs reveal diminished air entry to bilateral bases. ABDOMEN: Soft, nontender. Bowel sounds are heard. No organomegaly noted. EXTREMITIES: 1+ peripheral pulses with no evidence of peripheral edema and no calf tenderness noted. Soft cast is present on right wrist NEUROLOGIC patient is awake, alert and oriented 3 . - Labs CBC & Chem 7: 06/10/18 07:20 06/10/18 07:20 Labs: Abnormal Lab Results - Last 24 Hours (Table) 06/09/18 06/10/18 06/10/18 Range/Units 06:22 07:20 07:20 RBC 4.16 L (4.30-5.90) m/uL MCV 101.5 H (80.0-100.0) fL Neutrophils # 8.4 H (1.3-7.7) k/uL Lymphocytes # 0.4 L (1.0-4.8) k/uL Potassium 5.3 H (3.5-5.1) mmol/L Chloride 97 L 96 L (98-107) mmol/L Carbon Dioxide 21 L (22-30) mmol/L BUN 47 H 71 H (9-20) mg/dL Creatinine 4.82 H 6.26 H (0.66-1.25) mg/dL Glucose 153 H 164 H (74-99) mg/dL Assessment and Plan Plan: Assessment and plan #1 symptoms of progressively worsening shortness of breath over 3 day duration, systolic congestive heart failure acute on chronic #2 chronic persistent atrial fibrillation, not on anticoagulation, patient did have a history of bleeding in the past on Coumadin, he refuses anticoagulation #3 end-stage renal failure on hemodialysis #4 diabetes #5 hypertension #6 hyperlipidemia #7 known history of coronary artery disease stent placement #8 ischemic cardiomyopathy with prior AICD implantation #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 Plan From cardiology's perspective, we will recommend to continue the patient on his current medications. He has requested to be a DO NOT RESUSCITATE. DNP note has been reviewed, I agree with a documented findings and plan of care. Patient was seen and examined.
--- NOTE | 2018-06-10 13:05 | P.PN ---
Subjective Progress Note Date: 06/10/18 Hospital course:78-year-old gentleman with known history of congestive heart failure ejection fraction of 20% on hemodialysis came in with compensative shortness of breath found to be in failure exacerbation. Patient believes his heart failure is secondary to not remove enough fluid and on some of the days at the dialysis place. The probable reason being patient the blood pressure is being on the low normal side because of his poor ejection fraction. Patient does have history of atrial fibrillation decline anti-correlation the past. Patient is presently on Coreg. Coreg is being switched to metoprolol because of his low blood pressures which is leading to insufficient hemodialysis. Patient says he takes a medication before hemodialysis. On exam patient has a significant wheezing did have a smoking history but was never diagnosed with COPD. I'll start him on breathing treatments, obtain chest x-ray which is not available at this time. She doesn't have any pedal edema and although does have elevated JVD. Patient states he is still short of breath patient underwent hemodialysis yesterday and as per the patient they're planning on dialyzing him today as well as tomorrow. 06/10/2018 telemetry reporting controlled A. fib. Scheduled for ultrafiltration today-3 consecutive days as per neurology.Potassium improved, within normal limits.Maintained on Midodrine, with antihypertensives on hold..Systolic blood pressures in the high 80s to 90s, asymptomatic. Echo reporting severe global hypokinesis with LV, severely impaired LV function, EF 20-25%, LA severely dilated. RVSP 65.63, moderate to severe pulmonary hypertension, severe tricuspid regurgitation, possible thrombus in the LV apex. Constitutional: Denied any fatigue denied any fever. Cardio vascular: denied any chest pain, palpitations Gastrointestinal denied any nausea vomiting Pulmonary: As mentioned in HPI Neurologic denied any new focal deficits All inpatient medications were reviewed and appropriate changes in these medications as dictated in the interval history and assessment and plan. Objective - Vital Signs Vital signs: Vital Signs Temp 97.1 F L 06/10/18 12:08 Pulse 88 06/10/18 12:08 Resp 18 06/10/18 12:08 BP 89/51 06/10/18 12:08 Pulse Ox 93 L 06/10/18 12:08 Intake & Output 06/09/18 06/10/18 06/10/18 18:59 06:59 18:59 Intake Total 470 220 Balance 470 220 Weight 58 kg Intake: Oral 470 220 Other: # Voids 1 0 # Bowel Movements 1 - Exam GENERAL: The patient is alert and oriented x3, not in any acute distress. Thin built gentleman HEENT: Pupils are round and equally reacting to light. EOMI. No scleral icterus. No conjunctival pallor. Normocephalic, atraumatic. CARDIOVASCULAR: S1 and S2 present. Irregular, No murmurs, rubs, or gallops. PULMONARY: Diminished, fine bibasilar crackles, occasional diffuse expiratory wheeze ABDOMEN: Soft, nontender, nondistended, normoactive bowel sounds. No palpable organomegaly. MUSCULOSKELETAL: No joint swelling or deformity. EXTREMITIES: No cyanosis, clubbing, positive pedal edema. NEUROLOGICAL: Gross neurological examination did not reveal any focal deficits. SKIN: No rashes. - Labs CBC & Chem 7: 06/10/18 07:20 06/10/18 07:20 Labs: Abnormal Lab Results - Last 24 Hours (Table) 06/09/18 06/10/18 06/10/18 Range/Units 06:22 07:20 07:20 RBC 4.16 L (4.30-5.90) m/uL MCV 101.5 H (80.0-100.0) fL Neutrophils # 8.4 H (1.3-7.7) k/uL Lymphocytes # 0.4 L (1.0-4.8) k/uL Potassium 5.3 H (3.5-5.1) mmol/L Chloride 97 L 96 L (98-107) mmol/L Carbon Dioxide 21 L (22-30) mmol/L BUN 47 H 71 H (9-20) mg/dL Creatinine 4.82 H 6.26 H (0.66-1.25) mg/dL Glucose 153 H 164 H (74-99) mg/dL Assessment and Plan Assessment: -Short as of breath: probably secondary to acute on chronic congestive heart failure, systolic dysfunction, fluid volume overload with secondary to insufficient hemodialysis. -Atrial fibrillation, controlled ventricular rate mild rapid ventricular rate: Because of low normal blood pressures,very low ejection fraction, patient will be switched to metoprolol rather than Coreg. Declines any anticoagulation -End-stage renal disease, Hemo dialysis dependent. Patient's regular hemodialysis sessions or Thursday and Thursday -Hyperlipidemia -Coronary artery disease -Peripheral neuropathy chronic -Coronary artery disease with prior stents -Possible thrombus in LV apex, declined anticoagulation, history of GI bleed -Ischemic cardiomyopathy with prior AICD implantation. -Recent amputation of right thumb Plan: Continue on current medication regime ,monitoring and symptomatic treatment. Maximizing medical therapy .Continue Midodrin and holding of antihypertensives. Hemodialysis as per nephrology,scheduled for 3 consecutive days. The impression and plan of care has been dictated as directed. : I performed a history and examination of this patient, discussed the same with the dictator. I agree with the dictator's note ,documented as a scribe. Any additional findings or plans will be noted.
--- NOTE | 2018-06-10 13:39 | P.PN ---
Subjective Patient is seen in follow-up for end-stage renal disease. He is maintained on hemodialysis on a Thursday schedule. Tolerated hemodialysis well this morning. Denies chest pain. Continues to have a nonproductive cough. He does have history of systolic CHF with ejection fraction of 20-25% with severe tricuspid regurgitation and moderate to severe pulmonary hypertension. Vital signs are stable. General: The patient appeared well nourished and normally developed. HEENT: Head exam is unremarkable. Neck is without jugular venous distension. LUNGS: Breath sounds decreased. HEART: Rate and Rhythm are regular. First and second heart sounds normal. No murmurs, rubs or gallops. ABDOMEN: Abdominal exam reveals normal bowel sounds. Non-tender and non- distended. No evidence of peritonitis. EXTREMITITES: No clubbing, cyanosis, or edema. Objective - Vital Signs Vital signs: Vital Signs Temp 97.1 F L 06/10/18 12:08 Pulse 88 06/10/18 12:08 Resp 18 06/10/18 12:08 BP 89/51 06/10/18 12:08 Pulse Ox 93 L 06/10/18 12:08 Intake & Output 06/09/18 06/10/18 06/10/18 18:59 06:59 18:59 Intake Total 470 420 Balance 470 420 Weight 58 kg Intake: Oral 470 420 Other: # Voids 1 0 # Bowel Movements 1 - Labs CBC & Chem 7: 06/10/18 07:20 06/10/18 07:20 Labs: Abnormal Lab Results - Last 24 Hours (Table) 06/09/18 06/10/18 06/10/18 Range/Units 06:22 07:20 07:20 RBC 4.16 L (4.30-5.90) m/uL MCV 101.5 H (80.0-100.0) fL Neutrophils # 8.4 H (1.3-7.7) k/uL Lymphocytes # 0.4 L (1.0-4.8) k/uL Potassium 5.3 H (3.5-5.1) mmol/L Chloride 97 L 96 L (98-107) mmol/L Carbon Dioxide 21 L (22-30) mmol/L BUN 47 H 71 H (9-20) mg/dL Creatinine 4.82 H 6.26 H (0.66-1.25) mg/dL Glucose 153 H 164 H (74-99) mg/dL Assessment and Plan Plan: Assessment: 1. End-stage renal disease maintained on hemodialysis on a Thursday schedule. 2. Dyspnea secondary to volume overload. Also concern for bronchitis due to patient's cough. 3. Systolic CHF with ejection fraction of 20-25% with severe tricuspid regurgitation and moderate to severe pulmonary hypertension. 4. History of coronary artery disease. 5. Chronic hypotension maintained on midodrine. Plan: Ultrafiltration only tomorrow. Hemodialysis on Thursday. Add Levaquin.
[2018-06-10] MEDS ORDERED: LEVOFLOXACIN 500 MG TAB PO SCH (14:00)
[2018-06-10] MEDS: ATORVASTATIN 40 MG TAB PO SCH (20:55)
[2018-06-10] MEDS: PANTOPRAZOLE 40 MG TABLET PO SCH (20:55)
[2018-06-10] MEDS: METOPROLOL TARTRATE 12.5 MG TAB PO SCH (20:55)
[2018-06-11] MEDS: BALSALAZIDE DISODIUM 750 MG CAPSULE PO SCH ×3 (06:26→17:00)
[2018-06-11 06:42] LABS: Basophils % (A) 0 %; Eosinophils # (A) 0.1 k/uL (0-0.7); Eosinophils % (A) 1 %; HCT 44.3 % (39.0-53.0); HGB 13.5 gm/dL (13.0-17.5); Hypochromasia Slight; Lymphocytes # (A) 0.4 k/uL (1.0-4.8); Lymphocytes % (A) 4 %; MCH 30.8 pg (25.0-35.0); MCHC 30.4 g/dL (31.0-37.0); MCV 101.3 fL (80.0-100.0); Macrocytosis Slight; Mean Platelet Volume 7.1; Monocytes # (A) 0.6 k/uL (0-1.0); Monocytes % (A) 6 %; Neutrophils # (A) 8.2 k/uL (1.3-7.7); Neutrophils % (A) 87 %; Platelet Count 172 k/uL (150-450); RBC 4.37 m/uL (4.30-5.90); RDW 15.2 % (11.5-15.5); WBC 9.4 k/uL (3.8-10.6)
[2018-06-11] MEDS: SYMBICORT 160-4.5 MCG INHALER INHALATION SCH ×2 (07:52→20:15)
[2018-06-11] MEDS: ISOSORBIDE MONONITRATE ER 60 MG TAB.ER.24H PO SCH (08:15)
[2018-06-11] MEDS: EZETIMIBE 10 MG TAB PO SCH (08:15)
[2018-06-11] MEDS: METOPROLOL TARTRATE 12.5 MG TAB PO SCH (08:15)
[2018-06-11] MEDS: CLOPIDOGREL 75 MG TAB PO SCH (08:15)
[2018-06-11] MEDS: VIT A,C & E-LUTEIN-MINERALS 1 EACH TAB PO SCH ×2 (08:15→21:28)
[2018-06-11] MEDS: CALCIUM CARB-VIT D 500MG-200UN 1 EACH TAB PO SCH ×2 (08:15→21:28)
[2018-06-11] MEDS: ALLOPURINOL 100 MG TAB PO SCH ×2 (08:15→21:28)
[2018-06-11] MEDS: ASPIRIN 81 MG PO SCH (08:17)
--- NOTE | 2018-06-11 14:22 | PN ---
PROGRESS NOTE Patient is seen for followup for end-stage renal disease. He was admitted with shortness of breath. He is currently maintained on antibiotics. He also had increased ultrafiltration with daily dialysis. Overall, patient states he is feeling better. PHYSICAL EXAMINATION: This morning, blood pressure was 102/63, heart rate 88 per minute. He is afebrile. Examination of the heart, S1, S2. Examination of the lungs, bilateral breath sounds are heard. No significant crackles are heard. Abdomen is soft, nontender. Examination of the lower extremities shows edema 1+ mainly in the ankles bilaterally. [employer] exam is grossly intact. LABS: Show hemoglobin 13.5 g/dL. ASSESSMENT: 1. End-stage renal disease, on hemodialysis on a Thursday, , Thursday schedule, currently getting daily dialysis mainly for volume overload. 2. Possible pneumonia maintained on antibiotics, currently improving. 3. Volume overload, now improved. The patient will have another extra treatment today. 4. Cardiomyopathy, ejection fraction 20%-25%. PLAN: Repeat dialysis today for about 2 hours, mainly ultrafiltration and patient will have his regular treatment tomorrow. MMODL / IJN: [id number] /
--- NOTE | 2018-06-11 14:43 | P.PN ---
Subjective Progress Note Date: 06/11/18 This is a pleasant 78-year-old gentleman who follows regularly with Dr. Negron in the office. He has a known history of coronary artery disease with prior myocardial infarction and stenting of the circumflex and PDA in 2002. Patient also has known history of ischemic cardiomyopathy with prior AICD implantation, hypertension, diabetes, atrial fibrillation, hyperlipidemia, end-stage renal disease on hemodialysis. The patient was transferred here from [facility]. According to the patient, he's been getting progressively more and more weak, his appetite has been extremely poor. Over the past few days, patient states that he's been noticing himself to be more short of breath than usual and he feels congested in his chest. He does state that a few days ago he had some intermittent chest discomfort off and on. His main complaint however is his progressive weakness. Chest Xray showed pulmonary vascular congestion likely related to decompensated congestive heart failure. Patient does currently have a soft cast in place to his right wrist, he states that he was using his soft just around Thanksgiving time when he cut off a large section of his right thumb, he did recently undergo amputation of the thumb by Dr. Whaley. EKG performed at [facility] shows atrial fibrillation with nonspecific ST-T wave changes. Because of the abnormality in the BNP level in troponin patient was advised transfer here for further treatment. 06/11/2018 On examination, patient is resting comfortably in bed. He feels quite a bit better today compared to yesterday. He did undergo dialysis yesterday with removal of 3 L and is scheduled to undergo dialysis again today. Objective - Vital Signs Vital signs: Vital Signs Temp 97.3 F L 06/11/18 08:23 Pulse 88 06/11/18 11:31 Resp 20 06/11/18 11:31 BP 102/63 06/11/18 11:31 Pulse Ox 98 06/11/18 11:31 Intake & Output 06/10/18 06/11/18 06/11/18 18:59 06:59 18:59 Intake Total 700 290 Balance 700 290 Weight 53.2 kg Intake: Intake, IV Titration 50 Amount cefTAZidime 1 gm In 50 Sodium Chloride 0.9% 50 ml @ 100 mls/hr IVPB Q12HR [facility] Rx#:[id number] Oral 700 240 Other: # Voids 1 # Bowel Movements 1 - Exam GENERAL: 78-year-old gentleman in no acute distress at the time of my examination HEENT: Head is atraumatic, normocephalic. Pupils equal, round. Sclera anicteric. Conjunctiva are clear. Mucous membranes of the mouth are moist. Neck is supple. There is no elevated jugular venous pressure. No carotid bruit is heard. HEART EXAMINATION: Heart S1 and S2 irregularly irregular CHEST EXAMINATION: Lungs reveal diminished air entry to bilateral bases. ABDOMEN: Soft, nontender. Bowel sounds are heard. No organomegaly noted. EXTREMITIES: 1+ peripheral pulses with no evidence of peripheral edema and no calf tenderness noted. Soft cast is present on right wrist NEUROLOGIC patient is awake, alert and oriented 3 . - Labs CBC & Chem 7: 06/11/18 06:07 06/10/18 07:20 Labs: Abnormal Lab Results - Last 24 Hours (Table) 06/11/18 Range/Units 06:07 MCV 101.3 H (80.0-100.0) fL MCHC 30.4 L (31.0-37.0) g/dL Neutrophils # 8.2 H (1.3-7.7) k/uL Lymphocytes # 0.4 L (1.0-4.8) k/uL Assessment and Plan Assessment: #1 symptoms of progressively worsening shortness of breath over 3 day duration, systolic congestive heart failure acute on chronic #2 chronic persistent atrial fibrillation, not on anticoagulation, patient did have a history of bleeding in the past on Coumadin, he refuses anticoagulation #3 end-stage renal failure on hemodialysis #4 diabetes #5 hypertension #6 hyperlipidemia #7 known history of coronary artery disease stent placement #8 ischemic cardiomyopathy with prior AICD implantation #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 Plan: From cardiology's perspective, medications were reviewed and will continue the same. Continue to follow the patient during this admission and provide further recommendations accordingly. NEUROPHYSIOLOGY TECH note has been reviewed, I agree with a documented findings and plan of care. Patient was seen and examined.
[2018-06-11] MEDS: MIDODRINE 5 MG TAB PO PRN (16:45)
--- NOTE | 2018-06-11 19:53 | P.PN ---
Subjective Progress Note Date: 06/11/18 Hospital course:78-year-old gentleman with known history of congestive heart failure ejection fraction of 20% on hemodialysis came in with compensative shortness of breath found to be in failure exacerbation. Patient believes his heart failure is secondary to not remove enough fluid and on some of the days at the dialysis place. The probable reason being patient the blood pressure is being on the low normal side because of his poor ejection fraction. Patient does have history of atrial fibrillation decline anti-correlation the past. Patient is presently on Coreg. Coreg is being switched to metoprolol because of his low blood pressures which is leading to insufficient hemodialysis. Patient says he takes a medication before hemodialysis. On exam patient has a significant wheezing did have a smoking history but was never diagnosed with COPD. I'll start him on breathing treatments, obtain chest x-ray which is not available at this time. She doesn't have any pedal edema and although does have elevated JVD. Patient states he is still short of breath patient underwent hemodialysis yesterday and as per the patient they're planning on dialyzing him today as well as tomorrow. 06/10/2018 telemetry reporting controlled A. fib. Scheduled for ultrafiltration today-3 consecutive days as per neurology.Potassium improved, within normal limits.Maintained on Midodrine, with antihypertensives on hold..Systolic blood pressures in the high 80s to 90s, asymptomatic. Echo reporting severe global hypokinesis with LV, severely impaired LV function, EF 20-25%, LA severely dilated. RVSP 65.63, moderate to severe pulmonary hypertension, severe tricuspid regurgitation, possible thrombus in the LV apex. 06/11/2018 scheduled for hemodialysis today and ultrafiltration tomorrow. Maintained on IV antibiotics, with breathing improving. Ambulating in hallway, tolerating exertion well. Constitutional: Denied any fatigue denied any fever. Cardio vascular: denied any chest pain, palpitations Gastrointestinal denied any nausea vomiting Pulmonary: As mentioned in HPI Neurologic denied any new focal deficits Active Medications Albuterol/Ipratropium (Duoneb 0.5 Mg-3 Mg/3 Ml Soln) 3 ml INHALATION RT-QID PRN PRN Reason: Shortness Of Breath Or Wheezing Last Admin: 06/10/18 20:02 Dose: 3 ml Allopurinol (Zyloprim) 100 mg PO BID [facility] Last Admin: 06/11/18 08:15 Dose: 100 mg Aspirin (Aspirin) 81 mg PO DAILY [facility] Last Admin: 06/11/18 08:17 Dose: Not Given Atorvastatin Calcium (Lipitor) 40 mg PO HS [facility] Last Admin: 06/10/18 20:55 Dose: 40 mg Balsalazide (Colazal) 2,250 mg PO AC-TID [facility] Last Admin: 06/11/18 17:00 Dose: 2,250 mg Budesonide/Formoterol Fumarate (Symbicort 160-4.5 Mcg Inhaler) 2 puff INHALATION RT-BID [facility] Last Admin: 06/11/18 07:52 Dose: 2 puff Calcium Carbonate (Oscal 500+D) 1 each PO BID [facility] Last Admin: 06/11/18 08:15 Dose: 1 each Clopidogrel Bisulfate (Plavix) 75 mg PO DAILY [facility] Last Admin: 06/11/18 08:15 Dose: 75 mg Ezetimibe (Zetia) 10 mg PO DAILY [facility] Last Admin: 06/11/18 08:15 Dose: 10 mg Ceftazidime 0.5 gm/ Sodium (Chloride) 50 mls @ 100 mls/hr IVPB Q24HR [facility] Isosorbide Mononitrate (Imdur) 60 mg PO DAILY [facility] Last Admin: 06/11/18 08:15 Dose: Not Given Metoprolol Tartrate (Lopressor) 12.5 mg PO BID [facility] Last Admin: 06/11/18 08:15 Dose: 12.5 mg Midodrine (Proamatine) 5 mg PO DAILY PRN PRN Reason: Hypotension SBP 90-100 Midodrine (Proamatine) 10 mg PO DAILY PRN PRN Reason: Hypotension (SBP <90) Last Admin: 06/11/18 16:45 Dose: 10 mg Multivitamins/Minerals (Ivite) 1 each PO BID [facility] Last Admin: 06/11/18 08:15 Dose: 1 each Nitroglycerin (Nitrostat) 0.4 mg SUBLINGUAL Q5M PRN PRN Reason: Chest Pain Pantoprazole Sodium (Protonix) 40 mg PO HS [facility] Last Admin: 06/10/18 20:55 Dose: 40 mg Objective - Vital Signs Vital signs: Vital Signs Temp 97.4 F L 06/11/18 16:35 Pulse 106 H 06/11/18 16:35 Resp 18 06/11/18 16:35 BP 87/52 02/08/19 16:35 Pulse Ox 96 06/11/18 16:35 Intake & Output 06/11/18 06/11/18 06/12/18 06:59 18:59 06:59 Intake Total 880 Balance 880 Weight 53.2 kg Intake: Intake, IV Titration 50 Amount cefTAZidime 1 gm In 50 Sodium Chloride 0.9% 50 ml @ 100 mls/hr IVPB Q12HR [facility] Rx#:[id number] Oral 830 Other: # Voids 1 - Exam GENERAL: The patient is alert and oriented x3, not in any acute distress. HEENT: Pupils are round and equally reacting to light. EOMI. No scleral icterus. No conjunctival pallor. Normocephalic, atraumatic. CARDIOVASCULAR: S1 and S2 present. Irregular, No murmurs, rubs, or gallops. PULMONARY: Diminished, no course rhonchi, no wheezing ABDOMEN: Soft, nontender, nondistended, normoactive bowel sounds. No palpable organomegaly. MUSCULOSKELETAL: No joint swelling or deformity. EXTREMITIES: No cyanosis, clubbing, positive pedal edema. NEUROLOGICAL: Gross neurological examination did not reveal any focal deficits. SKIN: No rashes. Right wrist, soft cast. - Labs CBC & Chem 7: 06/11/18 06:07 06/10/18 07:20 Labs: Abnormal Lab Results - Last 24 Hours (Table) 06/11/18 Range/Units 06:07 MCV 101.3 H (80.0-100.0) fL MCHC 30.4 L (31.0-37.0) g/dL Neutrophils # 8.2 H (1.3-7.7) k/uL Lymphocytes # 0.4 L (1.0-4.8) k/uL Assessment and Plan Assessment: -Short as of breath: probably secondary to acute on chronic congestive heart failure, systolic dysfunction, fluid volume overload with secondary to insufficient hemodialysis. -Atrial fibrillation, chronic persistent, controlled ventricular rate mild rapid ventricular rate. History of bleeding on Coumadin, declines anticoagulation -End-stage renal disease, Hemo dialysis dependent. -Hyperlipidemia -Coronary artery disease -Peripheral neuropathy chronic -Coronary artery disease with prior stents -Possible thrombus in LV apex, declined anticoagulation, history of bleeding on Coumadin -Ischemic cardiomyopathy with prior AICD implantation. -Recent amputation of right thumb Plan: Continue on current medication regime ,monitoring and symptomatic treatment. Hemodialysis as per nephrology. Discharge planning in progress for tomorrow pending cardiology and nephrology clearance . The impression and plan of care has been dictated as directed. : I performed a history and examination of this patient, discussed the same with the dictator. I agree with the dictator's note ,documented as a scribe. Any additional findings or plans will be noted.
[2018-06-11] MEDS: ATORVASTATIN 40 MG TAB PO SCH (21:27)
[2018-06-11] MEDS: PANTOPRAZOLE 40 MG TABLET PO SCH (21:28)
[2018-06-11] MEDS ORDERED: guaiFENesin-DM 100-10MG/5ML 10 ML CUP PO PRN (23:14)
[2018-06-12 02:01] LABS: Calcium 8.8 mg/dL (8.4-10.2); Magnesium 2.1 mg/dL (1.6-2.3); Potassium 4.4 mmol/L (3.5-5.1)
[2018-06-12] MEDS: BALSALAZIDE DISODIUM 750 MG CAPSULE PO SCH ×3 (07:06→19:44)
[2018-06-12 07:50] LABS: Basophils % (A) 0 %; Eosinophils # (A) 0.1 k/uL (0-0.7); Eosinophils % (A) 1 %; HCT 47.9 % (39.0-53.0); HGB 14.9 gm/dL (13.0-17.5); Lymphocytes # (A) 0.4 k/uL (1.0-4.8); Lymphocytes % (A) 4 %; MCH 31.6 pg (25.0-35.0); MCHC 31.1 g/dL (31.0-37.0); MCV 101.5 fL (80.0-100.0); Macrocytosis Slight; Mean Platelet Volume 7.3; Monocytes # (A) 0.5 k/uL (0-1.0); Monocytes % (A) 5 %; Neutrophils % (A) 87 %; Platelet Count 161 k/uL (150-450); RBC 4.72 m/uL (4.30-5.90); RDW 15.1 % (11.5-15.5); WBC 9.1 k/uL (3.8-10.6)
[2018-06-12 08:02] LABS: Calcium 9.2 mg/dL (8.4-10.2); Potassium 4.7 mmol/L (3.5-5.1)
[2018-06-12] MEDS: SYMBICORT 160-4.5 MCG INHALER INHALATION SCH ×2 (08:55→21:09)
--- NOTE | 2018-06-12 10:55 | P.PN ---
Subjective Hospital course:78-year-old gentleman with known history of congestive heart failure ejection fraction of 20% on hemodialysis came in with compensative shortness of breath found to be in failure exacerbation. Patient believes his heart failure is secondary to not remove enough fluid and on some of the days at the dialysis place. The probable reason being patient the blood pressure is being on the low normal side because of his poor ejection fraction. Patient does have history of atrial fibrillation decline anti-correlation the past. Patient is presently on Coreg. Coreg is being switched to metoprolol because of his low blood pressures which is leading to insufficient hemodialysis. Patient says he takes a medication before hemodialysis. On exam patient has a significant wheezing did have a smoking history but was never diagnosed with COPD. I'll start him on breathing treatments, obtain chest x-ray which is not available at this time. She doesn't have any pedal edema and although does have elevated JVD. Patient states he is still short of breath patient underwent hemodialysis yesterday and as per the patient they're planning on dialyzing him today as well as tomorrow. 06/10/2018 telemetry reporting controlled A. fib. Scheduled for ultrafiltration today-3 consecutive days as per neurology.Potassium improved, within normal limits.Maintained on Midodrine, with antihypertensives on hold..Systolic blood pressures in the high 80s to 90s, asymptomatic. Echo reporting severe global hypokinesis with LV, severely impaired LV function, EF 20-25%, LA severely dilated. RVSP 65.63, moderate to severe pulmonary hypertension, severe tricuspid regurgitation, possible thrombus in the LV apex. 06/11/2018 scheduled for hemodialysis today and ultrafiltration tomorrow. Maintained on IV antibiotics, with breathing improving. Ambulating in hallway, tolerating exertion well. 06/12/2018 Patient had 1 bloody bowel movement patient denied any history of ulcerative colitis but patient is on sulfa medication which is normally used for from ulcerative colitis and the patient is complaining of crampy abdominal. Patient is undergoing hemodialysis will get the opinion of gastroenterology regarding this GI bleed. Constitutional: Denied any fatigue denied any fever. Cardio vascular: denied any chest pain, palpitations Gastrointestinal denied any nausea vomiting Pulmonary: Denied any shortness of breath cough Neurologic denied any new focal deficits All inpatient medications were reviewed and appropriate changes in these medications as dictated in the interval history and assessment and plan. Objective - Vital Signs Vital signs: Vital Signs Temp 97.5 F L 06/11/18 20:12 Pulse 60 06/12/18 08:00 Resp 18 06/12/18 08:00 BP 95/53 06/12/18 08:00 Pulse Ox 95 06/12/18 08:00 Intake & Output 06/11/18 06/12/18 06/12/18 18:59 06:59 18:59 Intake Total 880 240 Balance 880 240 Weight 52.6 kg Intake: Intake, IV Titration 50 Amount cefTAZidime 1 gm In 50 Sodium Chloride 0.9% 50 ml @ 100 mls/hr IVPB Q12HR [facility] Rx#:[id number] Oral 830 240 - Exam PHYSICAL EXAMINATION: GENERAL: The patient is alert and oriented x3, not in any acute distress. Thin built gentleman HEENT: Pupils are round and equally reacting to light. EOMI. No scleral icterus. No conjunctival pallor. Normocephalic, atraumatic. No pharyngeal erythema. No thyromegaly. CARDIOVASCULAR: S1 and S2 present. No murmurs, rubs, or gallops. PULMONARY: Fairly good air entry into bilateral lung amato no wheezing or crackles were appreciated ABDOMEN: Soft, nontender, nondistended, normoactive bowel sounds. No palpable organomegaly. MUSCULOSKELETAL: No joint swelling or deformity. EXTREMITIES: No cyanosis, clubbing, or pedal edema. NEUROLOGICAL: Gross neurological examination did not reveal any focal deficits. SKIN: No rashes. - Labs CBC & Chem 7: 06/12/18 07:13 06/12/18 07:13 Labs: Abnormal Lab Results - Last 24 Hours (Table) 06/12/18 06/12/18 06/12/18 Range/Units 00:57 07:13 07:13 MCV 101.5 H (80.0-100.0) fL Neutrophils # 8.0 H (1.3-7.7) k/uL Lymphocytes # 0.4 L (1.0-4.8) k/uL Chloride 93 L 93 L (98-107) mmol/L BUN 65 H 68 H (9-20) mg/dL Creatinine 5.47 H 5.86 H (0.66-1.25) mg/dL Glucose 104 H 146 H (74-99) mg/dL Assessment and Plan Plan: Assessment and Plan Assessment: -Short as of breath: probably secondary to acute on chronic congestive heart failure, systolic dysfunction, fluid volume overload with secondary to insufficient hemodialysis. She is fairly euvolemic will obtain repeat chest x- ray. Patient is undergoing hemodialysis today patient is still complaining of some respiratory distress although significant improved since his admission -GI bleed: Lower GI bleed consult gastroenterology -Atrial fibrillation, chronic persistent, controlled ventricular rate mild rapid ventricular rate. History of bleeding on Coumadin, declines anticoagulation -End-stage renal disease, Hemo dialysis dependent. -Hyperlipidemia -Coronary artery disease -Peripheral neuropathy chronic -Coronary artery disease with prior stents -Possible thrombus in LV apex, declined anticoagulation, history of bleeding on Coumadin -Ischemic cardiomyopathy with prior AICD implantation. -Recent amputation of right thumb
[2018-06-12] MEDS ORDERED: MIDODRINE 5 MG TAB PO STA (11:02)
--- NOTE | 2018-06-12 11:21 | P.PN ---
Subjective Patient is seen in follow-up for end-stage renal disease. He is maintained on hemodialysis on a Thursday schedule. Denies chest pain. Continues to have a nonproductive cough. He does have history of systolic CHF with ejection fraction of 20-25% with severe tricuspid regurgitation and moderate to severe pulmonary hypertension. Currently seen while undergoing hemodialysis. Complaining of bright red blood per rectum. Vital signs are stable. General: The patient appeared well nourished and normally developed. HEENT: Head exam is unremarkable. Neck is without jugular venous distension. LUNGS: Breath sounds decreased. HEART: Rate and Rhythm are regular. First and second heart sounds normal. No murmurs, rubs or gallops. ABDOMEN: Abdominal exam reveals normal bowel sounds. Non-tender and non- distended. No evidence of peritonitis. EXTREMITITES: No clubbing, cyanosis, or edema. Objective - Vital Signs Vital signs: Vital Signs Temp 97.5 F L 06/11/18 20:12 Pulse 60 06/12/18 08:00 Resp 18 06/12/18 08:00 BP 95/53 06/12/18 08:00 Pulse Ox 95 06/12/18 08:00 Intake & Output 06/11/18 06/12/18 06/12/18 18:59 06:59 18:59 Intake Total 880 240 Balance 880 240 Weight 52.6 kg Intake: Intake, IV Titration 50 Amount cefTAZidime 1 gm In 50 Sodium Chloride 0.9% 50 ml @ 100 mls/hr IVPB Q12HR [facility] Rx#:[id number] Oral 830 240 - Labs CBC & Chem 7: 06/12/18 07:13 06/12/18 07:13 Labs: Abnormal Lab Results - Last 24 Hours (Table) 06/12/18 06/12/18 06/12/18 Range/Units 00:57 07:13 07:13 MCV 101.5 H (80.0-100.0) fL Neutrophils # 8.0 H (1.3-7.7) k/uL Lymphocytes # 0.4 L (1.0-4.8) k/uL Chloride 93 L 93 L (98-107) mmol/L BUN 65 H 68 H (9-20) mg/dL Creatinine 5.47 H 5.86 H (0.66-1.25) mg/dL Glucose 104 H 146 H (74-99) mg/dL Assessment and Plan Plan: Assessment: 1. End-stage renal disease maintained on hemodialysis on a Thursday schedule. 2. Dyspnea secondary to volume overload. Also concern for bronchitis due to patient's cough. 3. Systolic CHF with ejection fraction of 20-25% with severe tricuspid regurgitation and moderate to severe pulmonary hypertension. 4. History of coronary artery disease. 5. Chronic hypotension maintained on midodrine. 6. Bright red blood per rectum. Hemoglobin stable. Plan: Currently seen while undergoing hemodialysis. 10 mg of midodrine now. Will try for 2 L of hydration. GI recommendations pending.
[2018-06-12 12:39] VITALS: BMI 18.7
[2018-06-12] MEDS: ALLOPURINOL 100 MG TAB PO SCH ×2 (14:26→21:46)
[2018-06-12] MEDS: ASPIRIN 81 MG PO SCH (14:26)
[2018-06-12] MEDS: CLOPIDOGREL 75 MG TAB PO SCH (14:27)
[2018-06-12] MEDS: METOPROLOL TARTRATE 12.5 MG TAB PO SCH ×2 (14:27→21:46)
[2018-06-12] MEDS: EZETIMIBE 10 MG TAB PO SCH (14:27)
[2018-06-12] MEDS: CALCIUM CARB-VIT D 500MG-200UN 1 EACH TAB PO SCH ×2 (14:27→21:46)
[2018-06-12] MEDS: ISOSORBIDE MONONITRATE ER 60 MG TAB.ER.24H PO SCH (14:27)
[2018-06-12] MEDS: VIT A,C & E-LUTEIN-MINERALS 1 EACH TAB PO SCH ×2 (14:28→23:35)
[2018-06-12] MEDS ORDERED: AMIODARONE 360 MG in DEXTROSE 5% IN WATER 200 ML IV ONE ×2 (14:32)
[2018-06-12] MEDS ORDERED: DEXTROSE 5% IN WATER 100 ML with AMIODARONE 150 MG IV ONE (14:32)
--- NOTE | 2018-06-12 14:51 | XR ---
EXAMINATION TYPE: XR chest 1V DATE OF EXAM: 06/12/2018 COMPARISON: 06/09/2018 HISTORY: Congestive heart failure TECHNIQUE: Single frontal view of the chest is obtained. FINDINGS: The patient's chin obscures the lung apices. There is no pulmonary vascular congestion not ed. Atherosclerosis of the subclavian arteries is noted overlying the left upper lungs. There is oziel ed cardiomegaly as seen on the prior exam with single lead left-sided cardiac device. No pulmonary ed silvana or pleural effusion. No sizable pneumothorax. Generalized osseous demineralization. IMPRESSION: Resolved pulmonary vascular congestion and interstitial edema. No current radiographic s equela of congestive heart failure.
--- NOTE | 2018-06-12 15:02 | PN ---
PROGRESS NOTE Mr. Taylor is a 78-year-old male with a history of end-stage renal disease, on hemodialysis, history of coronary artery disease, ischemic cardiomyopathy, ICD implantation, who was admitted with symptoms of progressive dyspnea. He continues to be dyspneic, although better, but he continues to have a cough. He is undergoing dialysis today. He has no chest pain, no palpitations. He has history of persistent atrial fibrillation, not anticoagulated. Patient has declined anticoagulation in the past. He has no nausea or vomiting. He continues to be on aspirin once a day, Lipitor 40 mg daily, Plavix 75 mg daily, Zetia 10 mg daily, isosorbide mononitrate 60 mg daily, metoprolol tartrate 12.5 mg twice a day, midodrine as needed, depending on his dialysis blood pressure. PHYSICAL EXAMINATION: Blood pressure 116/70 with a heart rate in the 60s. LUNGS: Scattered wheezes. HEART: Irregularly irregular. S1, S2. No S3, with systolic murmur. ABDOMEN: Soft, nontender. EXTREMITIES: No edema. LAB DATA: BUN and creatinine of 68 and 5.86, potassium 4.7, hemoglobin of 14.9. IMPRESSION: 1. End-stage renal disease, on hemodialysis. 2. History of coronary artery disease. 3. Ischemic cardiomyopathy. 4. Atrial fibrillation. 5. Hyperlipidemia. 6. Status post ICD implantation. 7. Persistent wheezing. RECOMMENDATIONS: From the cardiac standpoint, we will continue present therapy. Will obtain the input of Dr. Wetzel to see if further adjustment of his medical regimen will be helpful. MMODL / IJN: [id number] /
[2018-06-12] MEDS: HYDROmorphone 0.5 MG/0.5 ML SYRINGE IVP PRN ×2 (18:08→23:29)
[2018-06-12] MEDS: AMIODARONE 300 MG in DEXTROSE 5% IN WATER 250 ML IV SCH ×2 (21:09)
[2018-06-12] MEDS: PANTOPRAZOLE 40 MG TABLET PO SCH (21:46)
[2018-06-12] MEDS: ATORVASTATIN 40 MG TAB PO SCH (21:46)
[2018-06-12] MEDS ORDERED: SODIUM CHLORIDE 0.9% 1,000 ML IV ONE (21:50)
[2018-06-12] MEDS: NOREPINEPHRINE 4 MG in SODIUM CHLORIDE 0.9% 250 ML IV SCH (22:11)
[2018-06-12 23:10] LABS: Glucose,Whole Blood 120 mg/dL (75-99)
[2018-06-13] MEDS: HYDROmorphone 0.5 MG/0.5 ML SYRINGE IVP PRN (04:55)
[2018-06-13 05:46] LABS: Basophils % (A) 0 %; Calcium 8.9 mg/dL (8.4-10.2); Eosinophils # (A) 0.1 k/uL (0-0.7); Eosinophils % (A) 1 %; HCT 42.5 % (39.0-53.0); Hypochromasia Slight; Lymphocytes # (A) 0.5 k/uL (1.0-4.8); Lymphocytes % (A) 5 %; MCH 30.8 pg (25.0-35.0); MCHC 30.5 g/dL (31.0-37.0); MCV 100.9 fL (80.0-100.0); Macrocytosis Slight; Mean Platelet Volume 7.7; Monocytes # (A) 0.8 k/uL (0-1.0); Monocytes % (A) 8 %; Neutrophils % (A) 84 %; Phosphorus 5.1 mg/dL (2.5-4.5); Platelet Count 143 k/uL (150-450); Potassium 4.2 mmol/L (3.5-5.1); RBC 4.21 m/uL (4.30-5.90); RDW 15.1 % (11.5-15.5); WBC 10.7 k/uL (3.8-10.6)
[2018-06-13] MEDS: AMIODARONE 300 MG in DEXTROSE 5% IN WATER 250 ML IV SCH ×2 (07:51)
[2018-06-13] MEDS: METOPROLOL TARTRATE 12.5 MG TAB PO SCH ×2 (07:58→20:24)
[2018-06-13] MEDS: ISOSORBIDE MONONITRATE ER 60 MG TAB.ER.24H PO SCH (07:58)
[2018-06-13] MEDS: ALLOPURINOL 100 MG TAB PO SCH ×2 (08:10→20:24)
[2018-06-13] MEDS: CLOPIDOGREL 75 MG TAB PO SCH (08:10)
[2018-06-13] MEDS: ASPIRIN 81 MG PO SCH (08:10)
[2018-06-13] MEDS: MIDODRINE 5 MG TAB PO SCH ×3 (08:10→18:10)
[2018-06-13] MEDS: CALCIUM CARB-VIT D 500MG-200UN 1 EACH TAB PO SCH ×2 (08:12→20:24)
[2018-06-13] MEDS: BALSALAZIDE DISODIUM 750 MG CAPSULE PO SCH ×3 (08:12→18:08)
[2018-06-13] MEDS: EZETIMIBE 10 MG TAB PO SCH (08:12)
[2018-06-13] MEDS: VIT A,C & E-LUTEIN-MINERALS 1 EACH TAB PO SCH ×2 (08:13→20:24)
--- NOTE | 2018-06-13 09:47 | P.PN ---
Subjective Patient is seen in follow-up for end-stage renal disease. He is maintained on hemodialysis on a Thursday schedule. Denies chest pain. He does have history of systolic CHF with ejection fraction of 20-25% with severe tricuspid regurgitation and moderate to severe pulmonary hypertension. Yesterday the patient sustained a fall in the bathroom. He was noted to be in torsades. Magnesium level was normal. He was shocked by the defibrillator. Currently awake and alert. He is in the intensive care unit. Blood pressure was also in the systolic 60s and he received 1 L of normal saline bolus. Blood pressure stable this morning. Vital signs are stable. General: The patient appeared well nourished and normally developed. HEENT: Head exam is unremarkable. Neck is without jugular venous distension. LUNGS: Breath sounds decreased. HEART: Rate and Rhythm are regular. First and second heart sounds normal. No murmurs, rubs or gallops. ABDOMEN: Abdominal exam reveals normal bowel sounds. Non-tender and non- distended. No evidence of peritonitis. EXTREMITITES: No clubbing, cyanosis, or edema. Objective - Vital Signs Vital signs: Vital Signs Temp 98.2 F 06/12/18 23:30 Pulse 77 06/13/18 09:30 Resp 21 06/13/18 09:30 BP 103/47 06/13/18 09:30 Pulse Ox 92 L 06/13/18 09:30 Intake & Output 06/12/18 06/13/18 06/13/18 18:59 06:59 18:59 Intake Total 240 1100 200 Output Total 0 0 Balance 240 1100 200 Weight 52.6 kg 53.8 kg Intake: IV 1000 Sodium Chloride 0.9% 1, 1000 000 ml @ 999 mls/hr IV . Q1H1M ONE Rx#:[id number] Oral 240 100 200 Output: Urine 0 0 Other: # Voids 0 0 # Bowel Movements 2 - Labs CBC & Chem 7: 06/13/18 04:40 06/13/18 04:40 Labs: Abnormal Lab Results - Last 24 Hours (Table) 06/12/18 06/13/18 06/13/18 Range/Units 22:58 04:40 04:40 WBC 10.7 H (3.8-10.6) k/uL RBC 4.21 L (4.30-5.90) m/uL MCV 100.9 H (80.0-100.0) fL MCHC 30.5 L (31.0-37.0) g/dL Plt Count 143 L (150-450) k/uL Neutrophils # 9.0 H (1.3-7.7) k/uL Lymphocytes # 0.5 L (1.0-4.8) k/uL BUN 38 H (9-20) mg/dL Creatinine 3.85 H (0.66-1.25) mg/dL Glucose 144 H (74-99) mg/dL POC Glucose (mg/dL) 120 H (75-99) mg/dL Phosphorus 5.1 H (2.5-4.5) mg/dL Assessment and Plan Plan: Assessment: 1. End-stage renal disease maintained on hemodialysis on a Thursday schedule. 2. Dyspnea secondary to volume overload. Also concern for bronchitis due to patient's cough. Better. 3. Systolic CHF with ejection fraction of 20-25% with severe tricuspid regurgitation and moderate to severe pulmonary hypertension. 4. History of coronary artery disease. 5. Chronic hypotension maintained on midodrine. 6. Bright red blood per rectum yesterday. Hemoglobin stable. GI consulted. 7. Hypotension related to underlying cardiac status. Currently on 6 mics of Levophed. Plan: Hemodialysis on Thursday. Maintain Midodrine 10 mg 3 times daily. Wean Levophed. Check cortisol level. Patient has been contemplating hospice. He's been having discussions with his family but hasn't made a final decision yet.
[2018-06-13] MEDS: SYMBICORT 160-4.5 MCG INHALER INHALATION SCH ×3 (10:57→19:38)
--- NOTE | 2018-06-13 10:59 | PN ---
PROGRESS NOTE Mr. Taylor is a 78-year-old male with known history of severe cardiomyopathy who yesterday after dialysis had an episode of ventricular fibrillation was discharged from the device. He subsequently had hypotension, was transferred to the ICU. He is feeling better today. He was seen by Dr. Wetzel because of the persistent wheezing. He denies any chest pain, no palpitation. He feels much better with improvement in his breathing. The patient, at this point, would like to be NO CODE, but continue medical therapy. He is on IV norepinephrine. He continues to be on IV amiodarone, aspirin, Lipitor, 40 mg daily, Plavix 75 mg daily, Zetia 10 mg daily, isosorbide mononitrate 60 mg daily, metoprolol tartrate 12.5 mg twice a day and midodrine. PHYSICAL EXAMINATION: Blood pressure 103/50 with a heart rate in the 70s, lungs scattered rhonchi and wheezes. HEART: Regular rate and rhythm, S1, S2 with a systolic murmur. No diastolic murmur. ABDOMEN: Soft, nontender. Extremities: Chronic skin changes, but no significant edema. LAB DATA: BUN and creatinine 38 and 3.85, potassium 4.2, hemoglobin 13. IMPRESSION: 1. Severe ischemic cardiomyopathy status post ICD, status post ventricular fibrillation and discharge from the device yesterday. 2. End-stage renal disease, on hemodialysis. 3. Episode of hypotension, stable this morning. 4. Evidence of chronic obstructive pulmonary disease with bronchial asthma. RECOMMENDATION: From the cardiac standpoint, I will switch him to oral amiodarone. I will stop his isosorbide mononitrate, continue the rest of his medical regimen and depending on his progress, further recommendations will be made. I have discussed the case with him and his family. The prognosis remains guarded. MMODL / IJN: [id number] /
[2018-06-13] MEDS: AMIODARONE 200 MG TAB PO SCH ×2 (11:18→20:24)
--- NOTE | 2018-06-13 12:09 | CONS ---
CONSULTATION DATE OF SERVICE: 06/13/2018. REQUESTING PHYSICIAN: Dr. Trever Arellano REASON FOR CONSULTATION: Rectal bleeding. HISTORY OF THE PRESENT ILLNESS: The patient is a 78-year-old pleasant white male who was admitted to the hospital with shortness of breath and coughing, was also complaining of some chest pain with history of coronary artery disease status post ME in the past, history of a defibrillator implantation about 17 years ago and over the last several years has been progressively getting weak. While in the hospital, he started having some rectal bleeding and hence we are consulted in regards to this issue. He had 2 episodes of dark colored blood yesterday morning and the night before, but this morning he had a normal bowel movement. He denies any abdominal pain. He reports no nausea, vomiting, abdominal pain. He recalls having a colonoscopy about 4 or 5 years ago that was unremarkable. His initial hemoglobin was 14.9 and currently hemoglobin is 13 g/dL. While he was on the floor yesterday, he had an episode of ventricular fibrillation and had a shock from the ICD and subsequently became hypotensive and patient was transferred to the intensive care unit. Presently, he is being followed closely. He is on IV norepinephrine as well as IV amiodarone and overall remaining remains stable. PAST MEDICAL HISTORY: 1. Significant for severe ischemic cardiomyopathy status post AICD placement several years ago. 2. History of ventricular fibrillation. 3. End-stage renal disease on hemodialysis. 4. History of hypertension. 5. Congestive heart failure. 6. Degenerative joint disease. 7. Peripheral neuropathy. 8. Gout. 9. Hyperlipidemia. PAST SURGICAL HISTORY: ICD placement, back surgery, cardiac cath with multiple stents, pacemaker/AICD implantation, knee surgery, carpal tunnel surgery, carotid endarterectomy, left knee arthroscopy, right knee cataract removal, amputation of the right stump recently a week ago by Dr. Whaley. MEDICATIONS: At home include Prilosec, fish oil, Asacol, Imdur, Zetia, Plavix, Coreg, Os-Diony, Lipitor, aspirin, allopurinol. ALLERGIES: COUMADIN. SOCIAL HISTORY: No smoking. No alcohol use. FAMILY HISTORY: Unremarkable. REVIEW OF SYSTEMS: Cardiopulmonary: He denies any chest pain, shortness of breath. GENITOURINARY: Denies any dysuria or hematuria. Musculoskeletal: Chronic back pain. Neurology unremarkable. Psychiatric unremarkable. ENT/vision unremarkable. Constitutional: No recent weight loss. No fever, chills, night sweats. 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 GI: Rectal bleeding as mentioned above. Constitutional: Progressive fatigue and weakness. PHYSICAL EXAMINATION: He appears comfortable. No apparent distress. Vital signs stable. Blood pressure is 101/55, pulse is 70, temperature 98. HEENT examination unremarkable. Conjunctivae pink. Sclerae anicteric. Oral cavity no lesions. Neck no jugular venous distention or lymph node enlargement. Chest was clear to auscultation. HEART: Regular rate and rhythm. ABDOMEN: Soft. Bowel sounds are positive. It was nontender and nondistended. Liver and spleen not palpable. Extremities: No pedal edema. Skin no rashes. NEUROLOGIC: Alert and oriented x3. No focal deficits. LABS: Done at the time of admission to the hospital WBC 10.7, hemoglobin 13, platelets 143, BUN 38, creatinine 3.85. IMPRESSION: 1. Rectal bleeding, two episodes that happened yesterday. Hemoglobin stable at 13 g/dL. The patient did not have any further bleeding. In fact the last bowel movement this morning was brown in color. His last colonoscopy that he recalls was about 4 or 5 years ago and was unremarkable. 2. History of ulcerative colitis, details of which are not very clear at the present time. However, he remains on Asacol for several years, in remission. 3. End-stage renal disease, on hemodialysis. 4. Episodes of atrial fibrillation with hypertension. The patient presently in the intensive care unit with IV Levophed as well as IV amiodarone. Doing better. RECOMMENDATIONS: 1. We will obtain old records and review his previous colonoscopy. 2. CBC on a daily basis. 3. Given his overall cardiac condition, no plans on any endoscopy intervention at the present time. 4. Continue with Asacol at the same dose. 5. We will follow him closely during his hospital stay. Thank you for this consultation. MMODL / IJN: [id number] /
--- NOTE | 2018-06-13 13:03 | P.PN ---
Subjective Hospital course:78-year-old gentleman with known history of congestive heart failure ejection fraction of 20% on hemodialysis came in with compensative shortness of breath found to be in failure exacerbation. Patient believes his heart failure is secondary to not remove enough fluid and on some of the days at the dialysis place. The probable reason being patient the blood pressure is being on the low normal side because of his poor ejection fraction. Patient does have history of atrial fibrillation decline anti-correlation the past. Patient is presently on Coreg. Coreg is being switched to metoprolol because of his low blood pressures which is leading to insufficient hemodialysis. Patient says he takes a medication before hemodialysis. On exam patient has a significant wheezing did have a smoking history but was never diagnosed with COPD. I'll start him on breathing treatments, obtain chest x-ray which is not available at this time. She doesn't have any pedal edema and although does have elevated JVD. Patient states he is still short of breath patient underwent hemodialysis yesterday and as per the patient they're planning on dialyzing him today as well as tomorrow. 06/10/2018 telemetry reporting controlled A. fib. Scheduled for ultrafiltration today-3 consecutive days as per neurology.Potassium improved, within normal limits.Maintained on Midodrine, with antihypertensives on hold..Systolic blood pressures in the high 80s to 90s, asymptomatic. Echo reporting severe global hypokinesis with LV, severely impaired LV function, EF 20-25%, LA severely dilated. RVSP 65.63, moderate to severe pulmonary hypertension, severe tricuspid regurgitation, possible thrombus in the LV apex. 06/11/2018 scheduled for hemodialysis today and ultrafiltration tomorrow. Maintained on IV antibiotics, with breathing improving. Ambulating in hallway, tolerating exertion well. 06/12/2018 Patient had 1 bloody bowel movement patient denied any history of ulcerative colitis but patient is on sulfa medication which is normally used for from ulcerative colitis and the patient is complaining of crampy abdominal. Patient is undergoing hemodialysis will get the opinion of gastroenterology regarding this GI bleed. 06/13/2018 Patient had a polymorphic VT yesterday afternoon after which patient received magnesium and his Medtronic device was interrogated. Patient blood pressure remained low as today was systolics going down to 70s. After this event patient wanted to talk to me regarding his overall goals of care patient wanted his device to be turned off and discontinue his hemodialysis but wanted to discuss with daughter the following the morning that is today morning. But overnight patient blood pressure went down to quite low 50s and 60s systolic and patient wanted to continue the treatment for this low blood pressures because of which patient was transferred to ICU patient was started on levofloxacin at patient is presently on Levophed with systolic blood pressures staying at around 100. Family was at the bedside and I had extensive at length discussion with the patient patient is confused regarding what to do, whether to be hospice of continue the treatment. After at length discussion came up with a plan that if he doesn't improve and if she is requiring pressor support by tomorrow then the comfort care is appropriate if not patient will be discharged to an fdc or long-term facility and if his blood pressure drops with hemodialysis at that time he can make a decision of hospice. But if patient went into goes into cardiorespiratory arrest resuscitation will be done and patient will not be intubated at that time. Patient Medtronic device will be turned off. Constitutional: Denied any fatigue denied any fever. Cardio vascular: denied any chest pain, palpitations Gastrointestinal denied any nausea vomiting Pulmonary: Denied any shortness of breath cough Neurologic denied any new focal deficits All inpatient medications were reviewed and appropriate changes in these medications as dictated in the interval history and assessment and plan. Objective - Vital Signs Vital signs: Vital Signs Temp 98.2 F 06/12/18 23:30 Pulse 72 06/13/18 11:00 Resp 21 06/13/18 11:00 BP 101/55 06/13/18 11:00 Pulse Ox 95 06/13/18 11:00 Intake & Output 06/12/18 06/13/18 06/13/18 18:59 06:59 18:59 Intake Total 240 1100 324.403 Output Total 0 0 Balance 240 1100 324.403 Weight 52.6 kg 53.8 kg Intake: IV 1000 Sodium Chloride 0.9% 1, 1000 000 ml @ 999 mls/hr IV . Q1H1M ONE Rx#:[id number] Intake, IV Titration 124.403 Amount Norepinephrine 4 mg In 124.403 Sodium Chloride 0.9% 250 ml @ 0.05 MCG/KG/MIN 10. 02 mls/hr IV .Q24H ANITA Rx #:[id number] Oral 240 100 200 Output: Urine 0 0 Other: # Voids 0 0 # Bowel Movements 2 - Exam PHYSICAL EXAMINATION: GENERAL: The patient is alert and oriented x3, not in any acute distress. Thin built gentleman HEENT: Pupils are round and equally reacting to light. EOMI. No scleral icterus. No conjunctival pallor. Normocephalic, atraumatic. No pharyngeal erythema. No thyromegaly. CARDIOVASCULAR: S1 and S2 present. No murmurs, rubs, or gallops. PULMONARY: Fairly good air entry into bilateral lung amato , rhonchorous breath sounds minimal expiratory wheezing was appreciated today ABDOMEN: Soft, nontender, nondistended, normoactive bowel sounds. No palpable organomegaly. MUSCULOSKELETAL: No joint swelling or deformity. EXTREMITIES: No cyanosis, clubbing, or pedal edema. NEUROLOGICAL: Gross neurological examination did not reveal any focal deficits. SKIN: No rashes. - Labs CBC & Chem 7: 06/13/18 04:40 06/13/18 04:40 Labs: Abnormal Lab Results - Last 24 Hours (Table) 06/12/18 06/13/18 06/13/18 Range/Units 22:58 04:40 04:40 WBC 10.7 H (3.8-10.6) k/uL RBC 4.21 L (4.30-5.90) m/uL MCV 100.9 H (80.0-100.0) fL MCHC 30.5 L (31.0-37.0) g/dL Plt Count 143 L (150-450) k/uL Neutrophils # 9.0 H (1.3-7.7) k/uL Lymphocytes # 0.5 L (1.0-4.8) k/uL BUN 38 H (9-20) mg/dL Creatinine 3.85 H (0.66-1.25) mg/dL Glucose 144 H (74-99) mg/dL POC Glucose (mg/dL) 120 H (75-99) mg/dL Phosphorus 5.1 H (2.5-4.5) mg/dL Assessment and Plan Plan: Assessment and Plan Assessment: -Shock multifactorial hypovolemic and cardiogenic: Continue with the norepinephrine as mentioned above -acute on chronic congestive heart failure, systolic dysfunction, fluid volume overload with secondary to insufficient hemodialysis. Patient is probably going into volume overload may need hemodialysis tomorrow hopefully his blood pressure can tolerate. Patient has an AICD which as per the patient request will be turned off -GI bleed: Lower GI bleed, gastric body evaluated the patient no more blood in the stools. There is possibility of ulcerative colitis as patient is on Asacol. -Atrial fibrillation, chronic persistent, controlled ventricular rate mild rapid ventricular rate. History of bleeding on Coumadin, declines anticoagulation -End-stage renal disease, Hemo dialysis dependent. -Hyperlipidemia -Coronary artery disease -Peripheral neuropathy chronic -Coronary artery disease with prior stents -Possible thrombus in LV apex, declined anticoagulation, history of bleeding on Coumadin -Ischemic cardiomyopathy with prior AICD implantation. -Recent amputation of right thumb -Patient is DO NOT RESUSCITATE
--- NOTE | 2018-06-13 14:44 | P.CNPUL ---
History of Present Illness Consult date: 06/13/18 Chief complaint: Cardiomyopathy, hypotension History of present illness: This is a 78-year-old male patient who got transferred to the intensive care unit as the patient was found to be hypotensive. This patient has an extensive cardiac history. The patient has severe cardiomyopathy which is of an ischemic type and the patient is an ejection fraction of less than 20%. He is known to have coronary artery disease with previous myocardial infarction and stenting last one being in 2002 where the patient underwent stenting of the circumflex and PDA. The patient also has an AICD in place. Other comorbidities include incisional disease and the patient is currently on hemodialysis. He has chronic atrial fibrillation. He has hypertension and diabetes mellitus and hyperlipidemia and COPD. The patient had a episode yesterday on a telemetry unit where he is AICD fires. He was found in polymorphic V. tach and his AICD fired. Subsequently he was started on amiodarone loading. The patient had a drop in her blood pressure and following that the patient had to be moved to the intensive care unit. This morning, the patient is chest pain-free. His cardiac rhythm is paced although is having some ectopies constantly. Amiodarone boluses been completed and the patient is currently on oral amiodarone at a dose of 400 mg by mouth daily. As for the hypotension he was given a bolus of 1 L yesterday and currently is on norepinephrine infusion which is running at 0.04 g per KG per minute. He is awake and alert. Denies having any chest pain. His white cell count is not elevated. He has chronic renal failure and the creatinine is at 3.8. His last session of hemodialysis was yesterday. The patient's chest x-ray from yesterday showed resolution of the previously described vessel congestion and associated edema. Currently is on room air oxygen. Noted the patient also has history of ulcerative colitis. He was seen in consultation by Dr. Prado. The patient has no signs of any GI bleeding at this point. Also, the patient is considering to go to hospice care. He states that he is very much interested in hospice although his other family members including his kids are not shortness of the right thing for him. From my standpoint, the patient's CODE STATUS currently is DNR/DNI. Review of Systems Constitutional: Reports daytime sleepiness, Reports fatigue, Reports weakness, Reports weight loss Eyes: denies as per HPI, denies blurred vision, denies bulging eye, denies decreased vision, denies diplopia, denies discharge, denies dry eye, denies irritation, denies itching, denies pain, denies photophobia, denies loss of peripheral vision, denies loss of vision, denies tunnel vision/blind spots Ears: deny: decreased hearing, ear discharge, earache, tinnitus Ears, nose, mouth and throat: Denies headache, Denies sore throat Cardiovascular: Reports decreased exercise tolerance, Reports dyspnea on exertion, Reports shortness of breath Respiratory: Reports cough, Reports dyspnea Gastrointestinal: Reports loss of appetite Genitourinary: Reports as per HPI (The patient does not urinate and he has end- stage renal disease) Musculoskeletal: Reports low back pain Musculoskeletal: absent: ankle pain, ankle stiffness, ankle swelling, as per HPI , elbow pain, elbow stiffness, elbow swelling, foot pain, foot stiffness, foot swelling, hand pain, hand stiffness, hand swelling, hip pain, hip stiffness, hip swelling, knee pain, knee stiffness, knee swelling, shoulder pain, shoulder stiffness, shoulder swelling, wrist pain, wrist stiffness, wrist swelling Integumentary: Denies pruritus, Denies rash Neurological: Reports memory loss, Reports weakness Psychiatric: Reports depression Endocrine: Reports fatigue Hematologic/Lymphatic: Reports as per HPI Allergic/Immunologic: Reports as per HPI Past Medical History Past Medical History: Coronary Artery Disease (CAD), Heart Failure, Deep Vein Thrombosis (DVT), GERD/Reflux, Hyperlipidemia, Hypertension, Myocardial Infarction (VT), Osteoarthritis (OA), Pneumonia, Renal Disease Additional Past Medical History / Comment(s): gout,lt cataract, mac degeneration ,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, lower partials,hx of afib, pvd,bronchitis, sinus problems, renal insufficiency, psoriasis, neuropathy,djd, anemia, skin cancer, past treatment for dm now diet controlled no meds but checks bs once a day, esrd-hemodialysis t--thu Last Myocardial Infarction Date:: 2014 History of Any Multi-Drug Resistant Organisms: None Reported Past Surgical History: AICD, Back Surgery, Heart Catheterization With Stent, Orthopedic Surgery, Pacemaker Additional Past Surgical History / Comment(s): back surgery, knee surgery, carpal tunnel, rt carortid endarterectomy,lt knee arthroscopy(pt not sure if he had it replaced)non malignant tumor removed from lt hip, colonoscopy -polyps removed benign.rt eye cataract removed", amp rt thumb d/t inj, dialysis port rt ac"covered with bandage.no bp in rt arm. Past Anesthesia/Blood Transfusion Reactions: No Reported Reaction Additional Past Anesthesia/Blood Transfusion Reaction / Comment(s): past blood transfusions-no reaction Date of Last Stent Placement:: unk Type of Cardiac Device: Permanent Pacemaker, AICD Device Placement Date:: unk Smoking Status: Former smoker - Past Family History Mother Family Medical History: Cancer, Diabetes Mellitus, Myocardial Infarction (VT) Father Family Medical History: CVA/TIA Medications and Allergies Home Medications Medication Instructions Recorded Confirmed Type Aspirin 325 mg PO Q48H 08/30/14 06/08/18 History Atorvastatin [Lipitor] 40 mg PO HS 08/30/14 06/08/18 History Clopidogrel [Plavix] 75 mg PO DAILY 08/30/14 06/08/18 History Ezetimibe [Zetia] 10 mg PO DAILY 08/30/14 06/08/18 History Isosorbide Mononitrate [Imdur] 60 mg PO DAILY 08/30/14 06/08/18 History Mesalamine [Asacol Hd] 800 mg PO AC-TID 08/30/14 06/08/18 History [place]-3 Fatty Acids/Fish Oil [Fish 1 tab PO BID 08/30/14 06/08/18 History Oil 1,000 mg Softgel] Omeprazole [PriLOSEC] 20 mg PO HS 08/30/14 06/08/18 History Vit C/E/Zn/Coppr/Lutein/Zeaxan 1 tab PO BID 08/30/14 06/08/18 History [Preservision Areds 2 Softgel] Allopurinol [Zyloprim] 100 mg PO BID 06/08/18 06/08/18 History Calcium Carb-Vit D 500Mg-200Un 1 tab PO BID 06/08/18 06/08/18 History [Oscal 500+D] Carvedilol [Coreg] 6.25 mg PO BID 06/08/18 06/08/18 History Allergies Allergy/AdvReac Type Severity Reaction Status Date / Time iron Allergy Nausea & Verified 06/08/18 18:33 Vomiting warfarin sodium Allergy Unknown Verified 06/08/18 18:33 [From Coumadin] Physical Exam Vitals: Vital Signs Temp Pulse Pulse Resp BP BP Pulse Ox 06/13/18 13:00 75 14 96/78 92 L 06/13/18 12:30 71 12 100/68 91 L 06/13/18 12:00 60 37 H 115/51 94 L 06/13/18 11:30 69 14 97/59 94 L 06/13/18 11:00 72 21 101/55 95 06/13/18 10:30 70 25 H 105/74 92 L 06/13/18 10:00 60 21 109/66 93 L 06/13/18 09:30 77 21 103/47 92 L 06/13/18 09:00 80 15 113/57 92 L 06/13/18 08:30 71 19 114/58 90 L 06/13/18 08:00 84 15 121/57 90 L 06/13/18 07:45 82 24 109/63 96 06/13/18 07:30 63 12 96/56 97 06/13/18 07:15 61 12 111/53 97 06/13/18 07:00 71 13 99/49 97 06/13/18 06:45 66 11 L 112/62 96 06/13/18 06:30 80 17 96 06/13/18 06:15 64 11 L 104/49 97 06/13/18 06:00 65 11 L 101/53 96 06/13/18 05:45 85 15 121/54 93 L 06/13/18 05:30 85 24 125/56 95 06/13/18 05:15 85 24 124/62 96 06/13/18 05:00 61 22 103/76 96 06/13/18 04:45 70 12 100/59 98 06/13/18 04:30 68 25 H 107/53 96 06/13/18 04:15 60 12 97/65 96 06/13/18 04:00 60 25 H 110/57 97 06/13/18 03:45 64 13 107/58 97 06/13/18 03:30 85 13 112/70 97 06/13/18 03:15 74 14 116/69 97 06/13/18 03:00 69 13 113/56 97 06/13/18 02:45 86 13 103/57 98 06/13/18 02:30 60 13 115/57 98 06/13/18 02:15 67 13 118/56 98 06/13/18 02:00 63 15 112/56 98 06/13/18 01:45 68 12 112/65 98 06/13/18 01:30 66 13 110/68 98 06/13/18 01:15 92 20 110/67 98 06/13/18 01:00 75 13 117/63 97 06/13/18 00:45 78 13 109/62 98 06/13/18 00:30 87 20 88/46 98 06/13/18 00:15 85 20 92/54 97 06/13/18 00:00 92 13 98/49 97 06/12/18 23:45 76 25 H 113/60 97 06/12/18 23:30 98.2 F 84 22 106/67 96 06/12/18 23:15 75 37 H 98/54 88 L 06/12/18 23:05 85 27 H 91 L 06/12/18 22:09 82 18 69/35 06/12/18 21:05 97.7 F 82 18 57/25 92 L 06/12/18 20:00 96 18 06/12/18 16:00 60 18 06/12/18 15:02 74 18 75/48 93 L Intake and Output 06/12/18 06/13/18 06/13/18 22:59 06:59 14:59 Intake Total 1100 660.141 Output Total 0 0 Balance 1100 660.141 Intake: IV 1000 Sodium Chloride 0.9% 1, 1000 000 ml @ 999 mls/hr IV . Q1H1M ONE Rx#:[id number] Intake, IV Titration 160.141 Amount Norepinephrine 4 mg In 160.141 Sodium Chloride 0.9% 250 ml @ 0.05 MCG/KG/MIN 10. 02 mls/hr IV .Q24H [facility] Rx #:[id number] Oral 100 500 Output: Urine 0 0 Other: # Voids 0 0 Weight 53.8 kg GENERAL: The patient is alert and oriented x3, not in any acute distress. Thin built gentleman, nonacute distress. HEENT: Pupils are round and equally reacting to light. EOMI. No scleral icterus. No conjunctival pallor. Normocephalic, atraumatic. No pharyngeal erythema. No thyromegaly. Head exam was generally normal. There was no scleral icterus or corneal arcus. Mucous membranes were moist. Neck was supple and with jugular venous distension, thyromegaly, or carotid bruits. Carotids were easily palpable bilaterally. There was no adenopathy. The patient has a mild JVD CARDIOVASCULAR: S1 and S2 present. No murmurs, rubs, or gallops. AICD pocket over the left anterior chest area PULMONARY: Fairly good air entry into bilateral lung amato , rhonchorous breath sounds minimal expiratory wheezing was appreciated today ABDOMEN: Soft, nontender, nondistended, normoactive bowel sounds. No palpable organomegaly. MUSCULOSKELETAL: No joint swelling or deformity. EXTREMITIES: No cyanosis, clubbing, or pedal edema. AV fistula in the right arm that is functional NEUROLOGICAL: Gross neurological examination did not reveal any focal deficits. SKIN: No rashes. Examination of the skin revealed no evidence of significant rashes, suspicious appearing nevi or other concerning lesions. Results - Laboratory Findings CBC and BMP: 06/13/18 04:40 06/13/18 04:40 Abnormal lab findings: Abnormal Labs 06/08/18 06/08/18 06/09/18 19:12 19:12 00:27 WBC RBC MCV MCHC Plt Count Neutrophils # Lymphocytes # APTT 31.5 H 37.5 H Potassium Chloride Carbon Dioxide BUN Creatinine Glucose POC Glucose (mg/dL) Phosphorus Troponin I 0.547 H* HDL Cholesterol 06/09/18 06/09/18 06/09/18 00:27 06:22 06:22 WBC RBC 4.21 L MCV 104.5 H MCHC 30.8 L Plt Count 129 L Neutrophils # Lymphocytes # 0.2 L APTT Potassium Chloride Carbon Dioxide BUN Creatinine Glucose POC Glucose (mg/dL) Phosphorus Troponin I 0.441 H* HDL Cholesterol 36 L 06/09/18 06/09/18 06/10/18 06:22 06:22 07:20 WBC RBC 4.16 L MCV 101.5 H MCHC Plt Count Neutrophils # 8.4 H Lymphocytes # 0.4 L APTT 48.5 H Potassium 5.3 H Chloride 97 L Carbon Dioxide 21 L BUN 47 H Creatinine 4.82 H Glucose 153 H POC Glucose (mg/dL) Phosphorus Troponin I HDL Cholesterol 06/10/18 06/11/18 06/12/18 07:20 06:07 00:57 WBC RBC MCV 101.3 H MCHC 30.4 L Plt Count Neutrophils # 8.2 H Lymphocytes # 0.4 L APTT Potassium Chloride 96 L 93 L Carbon Dioxide BUN 71 H 65 H Creatinine 6.26 H 5.47 H Glucose 164 H 104 H POC Glucose (mg/dL) Phosphorus Troponin I HDL Cholesterol 06/12/18 06/12/18 06/12/18 07:13 07:13 22:58 WBC RBC MCV 101.5 H MCHC Plt Count Neutrophils # 8.0 H Lymphocytes # 0.4 L APTT Potassium Chloride 93 L Carbon Dioxide BUN 68 H Creatinine 5.86 H Glucose 146 H POC Glucose (mg/dL) 120 H Phosphorus Troponin I HDL Cholesterol 06/13/18 06/13/18 04:40 04:40 WBC 10.7 H RBC 4.21 L MCV 100.9 H MCHC 30.5 L Plt Count 143 L Neutrophils # 9.0 H Lymphocytes # 0.5 L APTT Potassium Chloride Carbon Dioxide BUN 38 H Creatinine 3.85 H Glucose 144 H POC Glucose (mg/dL) Phosphorus 5.1 H Troponin I HDL Cholesterol - Diagnostic Findings Chest x-ray: image reviewed Assessment and Plan Plan: Assessment 1 hypotension/cardiogenic shock, receiving gentle hydration and vasopressors for now. 2 severe cardiomyopathy with an ejection fraction of less than 20% and the patient has an AICD in place 3 polymorphic V. tach status post discharge of the AICD. 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 Plan Gentle hydration with normal state rate of 40 mL an hour. Continue norepinephrine infusion and wean it off to maintain a mean artery pressure above 65. The patient has been loaded with amiodarone and the patient will be switched to oral amiodarone for now. Continued the rest of the medications medications. No anticoagulation upon the patient's request and wishes. Midodrin was added by cardiology. Prognosis poor baseline above-mentioned comorbidities.
[2018-06-13] MEDS: IPRATROPIUM-ALBUTEROL 3 ML NEB INHALATION SCH (19:35)
[2018-06-13] MEDS: ATORVASTATIN 40 MG TAB PO SCH (20:24)
[2018-06-13] MEDS: PANTOPRAZOLE 40 MG TABLET PO SCH (20:24)
[2018-06-13] MEDS: NOREPINEPHRINE 4 MG in SODIUM CHLORIDE 0.9% 250 ML IV SCH (22:27)
[2018-06-13] MEDS: HYDROcodone/APAP 5-325MG 1 EACH TAB PO PRN (22:35)
[2018-06-13] MEDS ORDERED: DICYCLOMINE 20 MG TAB PO STA (23:42)
[2018-06-14 04:46] LABS: Basophils % (A) 0 %; Eosinophils # (A) 0.3 k/uL (0-0.7); Eosinophils % (A) 3 %; HCT 39.4 % (39.0-53.0); HGB 12.1 gm/dL (13.0-17.5); Hypochromasia Slight; Lymphocytes # (A) 0.6 k/uL (1.0-4.8); Lymphocytes % (A) 6 %; MCH 31.2 pg (25.0-35.0); MCHC 30.9 g/dL (31.0-37.0); Macrocytosis Slight; Mean Platelet Volume 7.6; Monocytes # (A) 0.6 k/uL (0-1.0); Monocytes % (A) 6 %; Neutrophils # (A) 8.1 k/uL (1.3-7.7); Neutrophils % (A) 83 %; Platelet Count 134 k/uL (150-450); RDW 15.2 % (11.5-15.5); WBC 9.8 k/uL (3.8-10.6)
[2018-06-14 05:04] LABS: Magnesium 2.1 mg/dL (1.6-2.3); Phosphorus 5.3 mg/dL (2.5-4.5)
[2018-06-14 06:11] LABS: Calcium 8.9 mg/dL (8.4-10.2); Potassium 4.5 mmol/L (3.5-5.1)
[2018-06-14] MEDS: IPRATROPIUM-ALBUTEROL 3 ML NEB INHALATION SCH ×3 (07:05→20:45)
[2018-06-14] MEDS: SYMBICORT 160-4.5 MCG INHALER INHALATION SCH ×2 (07:07→20:24)
--- NOTE | 2018-06-14 08:07 | PN ---
PROGRESS NOTE Mr. Taylor is a 78-year-old male with a history of severe cardiomyopathy status post ICD implant, end-stage renal disease. He had an episode of ventricular tachycardia requiring defibrillation. He is doing better this morning. He is feeling well. He denies any chest pain. He has some back pain. No chest pain. No dizziness. No palpitation. He denies any nausea. He had some rectal bleed earlier but resolved at this point. He is off the norepinephrine. Continues to be on amiodarone 400 mg twice a day, aspirin 81 mg daily, Lipitor 40 mg daily, , Plavix 75 mg daily, Zetia 10 mg daily, metoprolol tartrate 12.5 mg twice a day, midodrine 10 mg 3 times a day. PHYSICAL EXAMINATION: Blood pressure 105/60 with a heart rate in the 70s. LUNGS: Lungs with mild decrease in breath sound and mild scattered rhonchi. HEART: Regular rate and rhythm. S1, S2. No S3 with systolic murmur, no diastolic murmur. ABDOMEN: Soft, nontender. EXTREMITIES: No significant edema with chronic skin changes. LAB DATA: Revealed BUN and creatinine 47 and 5.65. Hemoglobin of 12.1, potassium 4.5. IMPRESSION: 1. Severe cardiomyopathy, status post ICD implant. 2. Status post recent discharge from the device, appropriate discharge. 3. End-stage renal disease. 4. Hypertension, resolved. 5. Chronic obstructive lung disease. RECOMMENDATION: From the cardiac standpoint, we will continue present therapy. Transfer to telemetry floor. The patient will undergo dialysis as scheduled and depending on his progress, further recommendation will be made. MMODL / IJN: [id number] /
[2018-06-14] MEDS: BALSALAZIDE DISODIUM 750 MG CAPSULE PO SCH ×3 (10:31→17:52)
[2018-06-14] MEDS: ALLOPURINOL 100 MG TAB PO SCH (10:32)
[2018-06-14] MEDS: MIDODRINE 5 MG TAB PO SCH ×3 (10:32→17:52)
[2018-06-14] MEDS: ASPIRIN 81 MG PO SCH (10:33)
[2018-06-14] MEDS: AMIODARONE 200 MG TAB PO SCH ×2 (10:33→20:25)
[2018-06-14] MEDS: CALCIUM CARB-VIT D 500MG-200UN 1 EACH TAB PO SCH ×2 (10:34→20:26)
[2018-06-14] MEDS: EZETIMIBE 10 MG TAB PO SCH (10:34)
[2018-06-14] MEDS: CLOPIDOGREL 75 MG TAB PO SCH (10:34)
[2018-06-14] MEDS: VIT A,C & E-LUTEIN-MINERALS 1 EACH TAB PO SCH ×2 (10:35→20:26)
[2018-06-14] MEDS: METOPROLOL TARTRATE 12.5 MG TAB PO SCH ×2 (10:35→20:26)
--- NOTE | 2018-06-14 13:08 | P.PN ---
Subjective Progress Note Date: 06/14/18 Principal diagnosis: Hypertension/cardiogenic shock/severe cardiomyopathy and LV dysfunction This is a 78-year-old male patient who got transferred to the intensive care unit as the patient was found to be hypotensive. This patient has an extensive cardiac history. The patient has severe cardiomyopathy which is of an ischemic type and the patient is an ejection fraction of less than 20%. He is known to have coronary artery disease with previous myocardial infarction and stenting last one being in 2002 where the patient underwent stenting of the circumflex and PDA. The patient also has an AICD in place. Other comorbidities include incisional disease and the patient is currently on hemodialysis. He has chronic atrial fibrillation. He has hypertension and diabetes mellitus and hyperlipidemia and COPD. The patient had a episode yesterday on a telemetry unit where he is AICD fires. He was found in polymorphic V. tach and his AICD fired. Subsequently he was started on amiodarone loading. The patient had a drop in her blood pressure and following that the patient had to be moved to the intensive care unit. This morning, the patient is chest pain-free. His cardiac rhythm is paced although is having some ectopies constantly. Amiodarone boluses been completed and the patient is currently on oral amiodarone at a dose of 400 mg by mouth daily. As for the hypotension he was given a bolus of 1 L yesterday and currently is on norepinephrine infusion which is running at 0.04 g per KG per minute. He is awake and alert. Denies having any chest pain. His white cell count is not elevated. He has chronic renal failure and the creatinine is at 3.8. His last session of hemodialysis was yesterday. The patient's chest x-ray from yesterday showed resolution of the previously described vessel congestion and associated edema. Currently is on room air oxygen. Noted the patient also has history of ulcerative colitis. He was seen in consultation by Dr. Prado. The patient has no signs of any GI bleeding at this point. Also, the patient is considering to go to hospice care. He states that he is very much interested in hospice although his other family members including his kids are not shortness of the right thing for him. From my standpoint, the patient's CODE STATUS currently is DNR/DNI. Patient was reevaluated today on 06/14/2018, feeling better, he is off pressors, he is on oral amiodarone, in no distress, no cough no wheezing no shortness of breath no chest pain, no nausea no vomiting no abdominal pain, patient responded well to pressors overnight. Presently asymptomatic and hemodynamically stable. Labs showed relatively normal CBC is relatively normal electrolytes however his BUN is 47 creatinine is 5.65. Significant worsening noted in the last 24 hours. Patient received a total of 1 L of fluid overnight. Presently he has a Hep-Lock Objective - Vital Signs Vital signs: Vital Signs Temp 97.8 F 06/14/18 11:30 Pulse 70 06/14/18 11:35 Resp 15 06/14/18 11:30 BP 109/51 06/14/18 11:30 Pulse Ox 99 06/14/18 11:30 Intake & Output 06/13/18 06/14/18 06/14/18 18:59 06:59 18:59 Intake Total 883.642 384.4 45 Output Total 0 0 0 Balance 883.642 384.4 45 Weight 55.6 kg Intake: IV 20 0.9 carrier 20 Intake, IV Titration 183.642 14.4 Amount Norepinephrine 4 mg In 183.642 14.4 Sodium Chloride 0.9% 250 ml @ 0.05 MCG/KG/MIN 10. 02 mls/hr IV .Q24H [facility] Rx #:[id number] Oral 700 350 45 Output: Urine 0 0 0 Other: # Voids 0 - Exam Physical Exam: Revealed a 78-year-old white male in no distress. Head: Atraumatic normocephalic. HEENT:[Neck is supple.] [No neck masses.] [No thyromegaly.] [No JVD.] PERRLA, EOMI, no icterus. Moist mucous membranes. Chest: [Minimal crackles at the bases, wheezing on forced expiratory maneuver was noted only. No chest wall tenderness. Symmetrical expansion noted. Cardiac Exam: [Normal S1 and S2, no S3 gallop, no murmur.] AICD pocket over the left anterior chest wall noted. Abdomen: [Soft, nontender, no megaly, no rebound, no guarding, normal bowel sounds.] Extremities: [No clubbing, no edema, no cyanosis.] Neurological Exam: [No focal neurologic deficit.] Psychiatric: Normal mood, affect and mental status examination. Skin: No rashes. - Labs CBC & Chem 7: 06/14/18 04:22 06/14/18 04:22 Labs: Abnormal Lab Results - Last 24 Hours (Table) 06/14/18 06/14/18 06/14/18 Range/Units 04:22 04:22 04:22 RBC 3.90 L (4.30-5.90) m/uL Hgb 12.1 L (13.0-17.5) gm/dL MCV 101.0 H (80.0-100.0) fL MCHC 30.9 L (31.0-37.0) g/dL Plt Count 134 L (150-450) k/uL Neutrophils # 8.1 H (1.3-7.7) k/uL Lymphocytes # 0.6 L (1.0-4.8) k/uL BUN 47 H (9-20) mg/dL Creatinine 5.65 H (0.66-1.25) mg/dL Glucose 118 H (74-99) mg/dL Phosphorus 5.3 H (2.5-4.5) mg/dL Assessment and Plan Assessment: Impression: 1 hypotension secondary to cardiogenic shock responded well to a combination of hydration and vasopressors. 2 severe cardiomyopathy and LV dysfunction. Ejection fraction of 20%. 3 recurrent episodes of ventricular tachycardia, presently on amiodarone, and AICD is in place. 4 end-stage renal disease on hemodialysis 5 history of coronary artery disease and previous coronary intervention/stenting 6 questionable thrombus in left apex 7 recent amputation of right thumb secondary to trauma from a saw, [facility] 8 underlying COPD, relatively asymptomatic and presently stable. 9 history of ulcerative colitis and previous anemia related to GI blood losses. Recommendation: Continue present cardiac meds, continue Hep-Lock, continue amiodarone, continue updrafts, continue Symbicort, Plavix, Lopressor, midodrine , nitroglycerin, and continue Protonix. All his meds were reviewed, I believe the patient has poor prognosis, however at this point could be transferred out of the ICU remains DO NOT RESUSCITATE CODE STATUS, we will follow. Time with Patient: Less than 30
--- NOTE | 2018-06-14 14:17 | P.PN ---
Subjective Hospital course:78-year-old gentleman with known history of congestive heart failure ejection fraction of 20% on hemodialysis came in with compensative shortness of breath found to be in failure exacerbation. Patient believes his heart failure is secondary to not remove enough fluid and on some of the days at the dialysis place. The probable reason being patient the blood pressure is being on the low normal side because of his poor ejection fraction. Patient does have history of atrial fibrillation decline anti-correlation the past. Patient is presently on Coreg. Coreg is being switched to metoprolol because of his low blood pressures which is leading to insufficient hemodialysis. Patient says he takes a medication before hemodialysis. On exam patient has a significant wheezing did have a smoking history but was never diagnosed with COPD. I'll start him on breathing treatments, obtain chest x-ray which is not available at this time. She doesn't have any pedal edema and although does have elevated JVD. Patient states he is still short of breath patient underwent hemodialysis yesterday and as per the patient they're planning on dialyzing him today as well as tomorrow. 06/10/2018 telemetry reporting controlled A. fib. Scheduled for ultrafiltration today-3 consecutive days as per neurology.Potassium improved, within normal limits.Maintained on Midodrine, with antihypertensives on hold..Systolic blood pressures in the high 80s to 90s, asymptomatic. Echo reporting severe global hypokinesis with LV, severely impaired LV function, EF 20-25%, LA severely dilated. RVSP 65.63, moderate to severe pulmonary hypertension, severe tricuspid regurgitation, possible thrombus in the LV apex. 06/11/2018 scheduled for hemodialysis today and ultrafiltration tomorrow. Maintained on IV antibiotics, with breathing improving. Ambulating in hallway, tolerating exertion well. 06/12/2018 Patient had 1 bloody bowel movement patient denied any history of ulcerative colitis but patient is on sulfa medication which is normally used for from ulcerative colitis and the patient is complaining of crampy abdominal. Patient is undergoing hemodialysis will get the opinion of gastroenterology regarding this GI bleed. 06/13/2018 Patient had a polymorphic VT yesterday afternoon after which patient received magnesium and his Medtronic device was interrogated. Patient blood pressure remained low as today was systolics going down to 70s. After this event patient wanted to talk to me regarding his overall goals of care patient wanted his device to be turned off and discontinue his hemodialysis but wanted to discuss with daughter the following the morning that is today morning. But overnight patient blood pressure went down to quite low 50s and 60s systolic and patient wanted to continue the treatment for this low blood pressures because of which patient was transferred to ICU patient was started on levofloxacin at patient is presently on Levophed with systolic blood pressures staying at around 100. Family was at the bedside and I had extensive at length discussion with the patient patient is confused regarding what to do, whether to be hospice of continue the treatment. After at length discussion came up with a plan that if he doesn't improve and if she is requiring pressor support by tomorrow then the comfort care is appropriate if not patient will be discharged to an detention or long-term facility and if his blood pressure drops with hemodialysis at that time he can make a decision of hospice. But if patient went into goes into cardiorespiratory arrest resuscitation will be done and patient will not be intubated at that time. Patient Medtronic device will be turned off. 06/14/2018 Patient is off pressor support pressure patient blood pressure remains in high 80s and low 90s systolic. Patient will be transferred out of ICU and Discussion with the patient again patient is here if you to have some crackles does have some wheezing on exam. Patient still wants is a ACD to be turned off he doesn't normally shocked again and he understands that if he is not shocked, it can lead to his Constitutional: Denied any fatigue denied any fever. Cardio vascular: denied any chest pain, palpitations Gastrointestinal denied any nausea vomiting Pulmonary: Denied any shortness of breath cough Neurologic denied any new focal deficits All inpatient medications were reviewed and appropriate changes in these medications as dictated in the interval history and assessment and plan. Objective - Vital Signs Vital signs: Vital Signs Temp 97.4 F L 06/14/18 13:00 Pulse 59 L 06/14/18 13:30 Resp 20 06/14/18 13:00 BP 86/49 06/14/18 13:00 Pulse Ox 94 L 06/14/18 13:00 Intake & Output 06/13/18 06/14/18 06/14/18 18:59 06:59 18:59 Intake Total 883.642 384.4 345 Output Total 0 0 0 Balance 883.642 384.4 345 Weight 55.6 kg Intake: IV 20 0.9 carrier 20 Intake, IV Titration 183.642 14.4 Amount Norepinephrine 4 mg In 183.642 14.4 Sodium Chloride 0.9% 250 ml @ 0.05 MCG/KG/MIN 10. 02 mls/hr IV .Q24H [facility] Rx #:[id number] Oral 700 350 345 Output: Urine 0 0 0 Other: # Voids 0 - Exam PHYSICAL EXAMINATION: GENERAL: The patient is alert and oriented x3, not in any acute distress. Thin built gentleman HEENT: Pupils are round and equally reacting to light. EOMI. No scleral icterus. No conjunctival pallor. Normocephalic, atraumatic. No pharyngeal erythema. No thyromegaly. CARDIOVASCULAR: S1 and S2 present. No murmurs, rubs, or gallops. PULMONARY: Fairly good air entry into bilateral lung amato , rhonchorous breath sounds minimal expiratory wheezing was appreciated today ABDOMEN: Soft, nontender, nondistended, normoactive bowel sounds. No palpable organomegaly. MUSCULOSKELETAL: No joint swelling or deformity. EXTREMITIES: No cyanosis, clubbing, or pedal edema. NEUROLOGICAL: Gross neurological examination did not reveal any focal deficits. SKIN: No rashes. - Labs CBC & Chem 7: 06/14/18 04:22 06/14/18 04:22 Labs: Abnormal Lab Results - Last 24 Hours (Table) 06/14/18 06/14/18 06/14/18 Range/Units 04:22 04:22 04:22 RBC 3.90 L (4.30-5.90) m/uL Hgb 12.1 L (13.0-17.5) gm/dL MCV 101.0 H (80.0-100.0) fL MCHC 30.9 L (31.0-37.0) g/dL Plt Count 134 L (150-450) k/uL Neutrophils # 8.1 H (1.3-7.7) k/uL Lymphocytes # 0.6 L (1.0-4.8) k/uL BUN 47 H (9-20) mg/dL Creatinine 5.65 H (0.66-1.25) mg/dL Glucose 118 H (74-99) mg/dL Phosphorus 5.3 H (2.5-4.5) mg/dL Assessment and Plan Plan: Assessment and Plan Assessment: -Shock multifactorial hypovolemic and cardiogenic: Off norepinephrine, patient will be transferred to the ICU -acute on chronic congestive heart failure, systolic dysfunction, fluid volume overload with secondary to insufficient hemodialysis. Patient is probably going into volume overload may need hemodialysis tomorrow hopefully his blood pressure can tolerate. Patient has an AICD which as per the patient request will be turned off after discussing with cardiology -GI bleed: Lower GI bleed, gastroenterology evaluated the patient no more GI bleed patient has positive ulcerative colitis is crampy abdominal pain continues to be an issue which is relieved by bowel movement. We will use as needed Bentyl but concern is constipation and Bentyl -Atrial fibrillation, chronic persistent, controlled ventricular rate mild rapid ventricular rate. History of bleeding on Coumadin, declines anticoagulation -End-stage renal disease, Hemo dialysis dependent. -Hyperlipidemia -Coronary artery disease -Peripheral neuropathy chronic -Coronary artery disease with prior stents -Possible thrombus in LV apex, declined anticoagulation, history of bleeding on Coumadin -Ischemic cardiomyopathy with prior AICD implantation. -Recent amputation of right thumb -Patient is DO NOT RESUSCITATE
--- NOTE | 2018-06-14 15:19 | PN ---
PROGRESS NOTE The patient is seen for followup for end-stage renal disease. He was transferred to the ICU as patient had an episode of torsades and he was hypotensive and had been on Levophed. Currently, he is off of Levophed since last night. Overall, patient states he is doing well. He will be transferred out of the ICU. The patient is scheduled for hemodialysis tomorrow. EXAMINATION: Currently, blood pressure 86/49, heart rate 60 per minute. He is afebrile. Examination of the heart S1, S2. Examination of lungs bilateral breath sounds are heard. Decreased breath sounds at bases. Abdomen is soft, nontender. Examination of lower extremities shows no significant edema. PAPER WINDER exam is grossly intact. The patient has amputation of his right thumb and the middle finger on the right hand. LABS SHOW: Hemoglobin 12.1, sodium 141, potassium 4.5. A serum cortisol was 26. ASSESSMENT: 1. End-stage renal disease, on hemodialysis on a Thursday, , Thursday schedule. The patient will be dialyzed tomorrow. 2. Status post fall and secondary to torsades. All electrolytes are within range. The patient will be dialyzed tomorrow. He is being seen by Cardiology. He does have an AICD. 3. Severe cardiomyopathy, ischemic. 4. Chronic obstructive pulmonary disease. 5. CKD mineral bone disorder. 6. Volume overload, currently improved. PLAN: Hemodialysis in a.m. The patient is stable to be moved out of the ICU. MMODL / IJN: [id number] /
[2018-06-14] MEDS: ATORVASTATIN 40 MG TAB PO SCH (20:25)
[2018-06-14] MEDS: PANTOPRAZOLE 40 MG TABLET PO SCH (20:26)
[2018-06-14] MEDS: HYDROcodone/APAP 5-325MG 1 EACH TAB PO PRN (20:34)
--- NOTE | 2018-06-14 21:43 | P.PN ---
Subjective Progress Note Date: 06/14/18 Principal diagnosis: Ulcerative colitis, rectal bleeding Patient lying in bed tolerating diet. No reports of abdominal pain at this time. No reports of GI bleeding. Objective - Vital Signs Vital signs: Vital Signs Temp 97.8 F 06/14/18 14:50 Pulse 75 06/14/18 14:50 Resp 16 06/14/18 14:50 BP 90/54 06/14/18 14:50 Pulse Ox 96 06/14/18 14:50 Intake & Output 06/14/18 06/14/18 06/15/18 06:59 18:59 06:59 Intake Total 384.4 345 Output Total 0 0 Balance 384.4 345 Weight 55.6 kg Intake: IV 20 0.9 carrier 20 Intake, IV Titration 14.4 Amount Norepinephrine 4 mg In 14.4 Sodium Chloride 0.9% 250 ml @ 0.05 MCG/KG/MIN 10. 02 mls/hr IV .[facility] Rx #:[id number] Oral 350 345 Output: Urine 0 0 - Exam On physical examination, patient appears comfortable in no apparent distress. HEAD: Normocephalic, atraumatic. EYES: No scleral icterus. No conjunctival injection. MOUTH: No lesions, tongue midline. NECK: Trachea midline, no gross abnormalities. CHEST: Decreased air entry in all lung amato. ABDOMEN: Soft, obese. Bowel sounds are positive. No organomegaly. No guarding or rigidity. EXTREMITIES: No pedal edema. SKIN: No rashes, no jaundice. NEUROLOGIC: Alert and oriented x3. No focal deficits. - Labs CBC & Chem 7: 06/14/18 04:22 06/14/18 04:22 Labs: Abnormal Lab Results - Last 24 Hours (Table) 06/14/18 06/14/18 06/14/18 Range/Units 04:22 04:22 04:22 RBC 3.90 L (4.30-5.90) m/uL Hgb 12.1 L (13.0-17.5) gm/dL MCV 101.0 H (80.0-100.0) fL MCHC 30.9 L (31.0-37.0) g/dL Plt Count 134 L (150-450) k/uL Neutrophils # 8.1 H (1.3-7.7) k/uL Lymphocytes # 0.6 L (1.0-4.8) k/uL BUN 47 H (9-20) mg/dL Creatinine 5.65 H (0.66-1.25) mg/dL Glucose 118 H (74-99) mg/dL Phosphorus 5.3 H (2.5-4.5) mg/dL Assessment and Plan (1) Ulcerative colitis Narrative/Plan: Patient seen today setting bedside. He reports a history of ulcerative colitis maintained on oral 5ASA agent. He had 2 episodes of dark bloody bowel movement while in the hospital, however this is subsequently resolved with the patient reporting bowel movements yesterday and today. Hemoglobin is stable. Current Visit: Yes Status: Acute Code(s): K51.90 - ULCERATIVE COLITIS, UNSPECIFIED, WITHOUT COMPLICATIONS SNOMED Code(s): 32290878 Plan: Supportive care Okay for diet Monitor hemoglobin and transfuse as needed Monitor stool output Continue balsalazide Patient reports last colonoscopy approximately 4-5 years ago, no further episodes of rectal bleeding reported, no plans for endoscopy evaluation at this time the patient has further worrisome symptoms or fall in hemoglobin we'll consider further evaluation Thank you for allowing us to participate in the care of this patient we will continue to follow
[2018-06-15] MEDS: HYDROcodone/APAP 5-325MG 1 EACH TAB PO PRN ×2 (02:44→10:34)
[2018-06-15 06:00] LABS: Basophils % (A) 0 %; Eosinophils # (A) 0.5 k/uL (0-0.7); Eosinophils % (A) 4 %; HCT 41.7 % (39.0-53.0); HGB 12.6 gm/dL (13.0-17.5); Lymphocytes # (A) 0.5 k/uL (1.0-4.8); Lymphocytes % (A) 4 %; MCH 30.5 pg (25.0-35.0); MCHC 30.2 g/dL (31.0-37.0); Macrocytosis Slight; Mean Platelet Volume 6.8; Monocytes # (A) 0.7 k/uL (0-1.0); Monocytes % (A) 6 %; Neutrophils # (A) 10.4 k/uL (1.3-7.7); Neutrophils % (A) 85 %; Platelet Count 177 k/uL (150-450); RBC 4.13 m/uL (4.30-5.90); RDW 15.9 % (11.5-15.5); WBC 12.4 k/uL (3.8-10.6)
[2018-06-15 06:19] LABS: Calcium 8.5 mg/dL (8.4-10.2); Magnesium 2.1 mg/dL (1.6-2.3); Phosphorus 5.4 mg/dL (2.5-4.5); Potassium 4.4 mmol/L (3.5-5.1)
[2018-06-15] MEDS: MIDODRINE 5 MG TAB PO SCH ×3 (06:23→17:37)
[2018-06-15] MEDS: BALSALAZIDE DISODIUM 750 MG CAPSULE PO SCH ×3 (06:57→17:37)
[2018-06-15] MEDS: SYMBICORT 160-4.5 MCG INHALER INHALATION SCH ×2 (08:49→20:29)
[2018-06-15] MEDS: IPRATROPIUM-ALBUTEROL 3 ML NEB INHALATION SCH ×3 (08:49→20:29)
[2018-06-15] MEDS: MIDODRINE 5 MG TAB PO PRN (10:35)
[2018-06-15] MEDS ORDERED: GELATIN SPONGE,ABSORB (LARGE) 1 EACH SPONGE ONE ×2 (11:30)
--- NOTE | 2018-06-15 11:54 | P.PN ---
Subjective Hospital course:78-year-old gentleman with known history of congestive heart failure ejection fraction of 20% on hemodialysis came in with compensative shortness of breath found to be in failure exacerbation. Patient believes his heart failure is secondary to not remove enough fluid and on some of the days at the dialysis place. The probable reason being patient the blood pressure is being on the low normal side because of his poor ejection fraction. Patient does have history of atrial fibrillation decline anti-correlation the past. Patient is presently on Coreg. Coreg is being switched to metoprolol because of his low blood pressures which is leading to insufficient hemodialysis. Patient says he takes a medication before hemodialysis. On exam patient has a significant wheezing did have a smoking history but was never diagnosed with COPD. I'll start him on breathing treatments, obtain chest x-ray which is not available at this time. She doesn't have any pedal edema and although does have elevated JVD. Patient states he is still short of breath patient underwent hemodialysis yesterday and as per the patient they're planning on dialyzing him today as well as tomorrow. 06/10/2018 telemetry reporting controlled A. fib. Scheduled for ultrafiltration today-3 consecutive days as per neurology.Potassium improved, within normal limits.Maintained on Midodrine, with antihypertensives on hold..Systolic blood pressures in the high 80s to 90s, asymptomatic. Echo reporting severe global hypokinesis with LV, severely impaired LV function, EF 20-25%, LA severely dilated. RVSP 65.63, moderate to severe pulmonary hypertension, severe tricuspid regurgitation, possible thrombus in the LV apex. 06/11/2018 scheduled for hemodialysis today and ultrafiltration tomorrow. Maintained on IV antibiotics, with breathing improving. Ambulating in hallway, tolerating exertion well. 06/12/2018 Patient had 1 bloody bowel movement patient denied any history of ulcerative colitis but patient is on sulfa medication which is normally used for from ulcerative colitis and the patient is complaining of crampy abdominal. Patient is undergoing hemodialysis will get the opinion of gastroenterology regarding this GI bleed. 06/13/2018 Patient had a polymorphic VT yesterday afternoon after which patient received magnesium and his Medtronic device was interrogated. Patient blood pressure remained low as today was systolics going down to 70s. After this event patient wanted to talk to me regarding his overall goals of care patient wanted his device to be turned off and discontinue his hemodialysis but wanted to discuss with daughter the following the morning that is today morning. But overnight patient blood pressure went down to quite low 50s and 60s systolic and patient wanted to continue the treatment for this low blood pressures because of which patient was transferred to ICU patient was started on levofloxacin at patient is presently on Levophed with systolic blood pressures staying at around 100. Family was at the bedside and I had extensive at length discussion with the patient patient is confused regarding what to do, whether to be hospice of continue the treatment. After at length discussion came up with a plan that if he doesn't improve and if she is requiring pressor support by tomorrow then the comfort care is appropriate if not patient will be discharged to an half-way or long-term facility and if his blood pressure drops with hemodialysis at that time he can make a decision of hospice. But if patient went into goes into cardiorespiratory arrest resuscitation will be done and patient will not be intubated at that time. Patient Medtronic device will be turned off. 06/14/2018 Patient is off pressor support pressure patient blood pressure remains in high 80s and low 90s systolic. Patient will be transferred out of ICU and Discussion with the patient again patient is here if you to have some crackles does have some wheezing on exam. Patient still wants is a ACD to be turned off he doesn't normally shocked again and he understands that if he is not shocked, it can lead to his 06/15/2018 Patient is still complaining of abdominal pain sharp in nature on and off it happened last night and now he is having pain during the time of dialysis will use Bentyl on as-needed basis cautiously as it can cause her constipation patient does have ulcerative colitis and the patient is on sulfa drugs for that. Because of his continued abdominal pain and leukocytosis I'll hold his discharge today. His leukocytosis ink improve by tomorrow and his abdominal pain is bit better uncontrolled by pain medications patient can be discharged tomorrow to home with home care. Patient will continue his therapy with the hemodialysis and will continue his AICD Constitutional: Denied any fatigue denied any fever. Cardio vascular: denied any chest pain, palpitations Gastrointestinal denied any nausea vomiting Pulmonary: Denied any shortness of breath cough Neurologic denied any new focal deficits All inpatient medications were reviewed and appropriate changes in these medications as dictated in the interval history and assessment and plan. Objective - Vital Signs Vital signs: Vital Signs Temp 97.8 F 06/15/18 03:29 Pulse 69 06/15/18 10:50 Resp 18 06/15/18 08:50 BP 93/48 06/15/18 10:50 Pulse Ox 98 06/15/18 08:50 Intake & Output 06/14/18 06/15/18 06/15/18 18:59 06:59 18:59 Intake Total 345 20 Output Total 0 Balance 345 20 Weight 54.3 kg Intake: IV 20 0.9 carrier 20 Oral 345 Output: Urine 0 - Exam PHYSICAL EXAMINATION: GENERAL: The patient is alert and oriented x3, not in any acute distress. Thin built gentleman HEENT: Pupils are round and equally reacting to light. EOMI. No scleral icterus. No conjunctival pallor. Normocephalic, atraumatic. No pharyngeal erythema. No thyromegaly. CARDIOVASCULAR: S1 and S2 present. No murmurs, rubs, or gallops. PULMONARY: Fairly good air entry into bilateral lung amato , rhonchorous breath sounds minimal expiratory wheezing was appreciated today ABDOMEN: Soft, nontender, nondistended, normoactive bowel sounds. No palpable organomegaly. MUSCULOSKELETAL: No joint swelling or deformity. EXTREMITIES: No cyanosis, clubbing, or pedal edema. NEUROLOGICAL: Gross neurological examination did not reveal any focal deficits. SKIN: No rashes. - Labs CBC & Chem 7: 06/15/18 05:22 06/15/18 05:22 Labs: Abnormal Lab Results - Last 24 Hours (Table) 06/15/18 06/15/18 Range/Units 05:22 05:22 WBC 12.4 H (3.8-10.6) k/uL RBC 4.13 L (4.30-5.90) m/uL Hgb 12.6 L (13.0-17.5) gm/dL MCV 101.0 H (80.0-100.0) fL MCHC 30.2 L (31.0-37.0) g/dL RDW 15.9 H (11.5-15.5) % Neutrophils # 10.4 H (1.3-7.7) k/uL Lymphocytes # 0.5 L (1.0-4.8) k/uL Chloride 97 L (98-107) mmol/L BUN 60 H (9-20) mg/dL Creatinine 7.13 H* (0.66-1.25) mg/dL Glucose 108 H (74-99) mg/dL Phosphorus 5.4 H (2.5-4.5) mg/dL Assessment and Plan Plan: Assessment and Plan Assessment: -Shock multifactorial hypovolemic and cardiogenic: Patient is clinically doing well is receiving hemodialysis today -acute on chronic congestive heart failure, systolic dysfunction, fluid volume overload with secondary to insufficient hemodialysis. Patient is probably going into volume overload may need hemodialysis tomorrow hopefully his blood pressure can tolerate. Patient has an AICD which as per the patient request will be turned off after discussing with cardiology -GI bleed: Lower GI bleed, gastroenterology evaluated the patient no more GI bleed patient has positive ulcerative colitis is crampy abdominal pain continues to be an issue which is relieved by bowel movement. We will use as needed Bentyl but concern is constipation with Bentyl -Atrial fibrillation, chronic persistent, controlled ventricular rate mild rapid ventricular rate. History of bleeding on Coumadin, declines anticoagulation and probably not a candidate because of his recurrent GI bleed and ulcerative colitis -End-stage renal disease, Hemo dialysis dependent. -Hyperlipidemia -Coronary artery disease -Peripheral neuropathy chronic -Coronary artery disease with prior stents -Possible thrombus in LV apex, declined anticoagulation, history of bleeding on Coumadin -Ischemic cardiomyopathy with prior AICD implantation. -Recent amputation of right thumb -Patient is DO NOT RESUSCITATE
[2018-06-15] MEDS: CLOPIDOGREL 75 MG TAB PO SCH (13:00)
[2018-06-15] MEDS: METOPROLOL TARTRATE 12.5 MG TAB PO SCH ×2 (13:00→21:31)
[2018-06-15] MEDS: ASPIRIN 81 MG PO SCH (13:00)
[2018-06-15] MEDS: AMIODARONE 200 MG TAB PO SCH ×2 (13:01→21:21)
[2018-06-15] MEDS: DICYCLOMINE 10 MG CAP PO SCH ×2 (13:02→21:21)
[2018-06-15] MEDS: VIT A,C & E-LUTEIN-MINERALS 1 EACH TAB PO SCH ×2 (13:04→21:21)
[2018-06-15] MEDS: ALLOPURINOL 100 MG TAB PO SCH (13:05)
[2018-06-15] MEDS: EZETIMIBE 10 MG TAB PO SCH (13:05)
[2018-06-15] MEDS: CALCIUM CARB-VIT D 500MG-200UN 1 EACH TAB PO SCH ×2 (13:06→21:21)
--- NOTE | 2018-06-15 14:01 | P.PN ---
Subjective Progress Note Date: 06/15/18 This is a pleasant 78-year-old gentleman who follows regularly with Dr. Negron in the office. He has a known history of coronary artery disease with prior myocardial infarction and stenting of the circumflex and PDA in 2002. Patient also has known history of ischemic cardiomyopathy with prior AICD implantation, hypertension, diabetes, atrial fibrillation, hyperlipidemia, end-stage renal disease on hemodialysis. The patient was transferred here from [facility]. According to the patient, he's been getting progressively more and more weak, his appetite has been extremely poor. Over the past few days, patient states that he's been noticing himself to be more short of breath than usual and he feels congested in his chest. He does state that a few days ago he had some intermittent chest discomfort off and on. His main complaint however is his progressive weakness. He presented to [facility], laboratory data performed there showed a white blood cell count is 7.3, hemoglobin 14, hematocrit 45, platelet count 126. Sodium 142, potassium 4.6, BNP level 141,000, BUN 26, creatinine 3.9, troponin 0.3 chest x-ray was also performed there which showed pulmonary vascular congestion likely related to decompensated congestive heart failure. Patient does currently have a soft cast in place to his right wrist, he states that he was using his soft just around Thanksgiving time when he cut off a large section of his right thumb, he did recently undergo amputation of the thumb by Dr. Whaley. EKG performed at [facility] shows atrial fibrillation with nonspecific ST-T wave changes. Because of the abnormality in the BNP level in troponin patient was advised transfer here for further treatment. Blood pressure here 90/60, heart rate in the 90s, 92% on room air. Repeat troponins were performed here, 0.5 and 0.4. At the time of my examination this morning, patient is comfortable, sitting at the edge of his bed, denies any chest discomfort, still complains of some shortness of breath. Very weak. 06/10/2018 Patient seen and examined this morning, feels much more weeks today, much more short of breath. He does have wishes to be a DO NOT RESUSCITATE is reflected in his chart. He did undergo dialysis today, they removed 3 L. Blood pressure 90/50 with a heart rate in the 80s, 93% on room air. White blood cell count 9.4 , hemoglobin 13.2, platelet count 176. Sodium 138, potassium 4.7, BUN 71 and creatinine 6.2. 06/15/2018 A shunt was seen and examined this morning, no further ectopy was noted on the monitor. Underwent dialysis this morning. I pressure 100/50 with a heart rate in the 60s, 97% on room air. Objective - Vital Signs Vital signs: Vital Signs Temp 97.8 F 06/15/18 03:29 Pulse 72 06/15/18 13:20 Resp 16 06/15/18 12:11 BP 100/58 06/15/18 12:11 Pulse Ox 97 06/15/18 12:11 Intake & Output 06/14/18 06/15/18 06/15/18 18:59 06:59 18:59 Intake Total 345 20 240 Output Total 0 Balance 345 20 240 Weight 54.3 kg 53 kg Intake: IV 20 0.9 carrier 20 Oral 345 240 Output: Urine 0 - Exam PHYSICAL EXAMINATION: GENERAL: 78-year-old gentleman in no acute distress at the time of my examination HEENT: Head is atraumatic, normocephalic. Pupils equal, round. Sclera anicteric. Conjunctiva are clear. Mucous membranes of the mouth are moist. Neck is supple. There is no elevated jugular venous pressure. No carotid bruit is heard. HEART EXAMINATION: Heart S1 and S2 irregularly irregular CHEST EXAMINATION: Lungs reveal diminished air entry to bilateral bases. ABDOMEN: Soft, nontender. Bowel sounds are heard. No organomegaly noted. EXTREMITIES: 1+ peripheral pulses with no evidence of peripheral edema and no calf tenderness noted. Soft cast is present on right wrist NEUROLOGIC patient is awake, alert and oriented 3 . - Labs CBC & Chem 7: 06/15/18 05:22 06/15/18 05:22 Labs: Abnormal Lab Results - Last 24 Hours (Table) 06/15/18 06/15/18 Range/Units 05:22 05:22 WBC 12.4 H (3.8-10.6) k/uL RBC 4.13 L (4.30-5.90) m/uL Hgb 12.6 L (13.0-17.5) gm/dL MCV 101.0 H (80.0-100.0) fL MCHC 30.2 L (31.0-37.0) g/dL RDW 15.9 H (11.5-15.5) % Neutrophils # 10.4 H (1.3-7.7) k/uL Lymphocytes # 0.5 L (1.0-4.8) k/uL Chloride 97 L (98-107) mmol/L BUN 60 H (9-20) mg/dL Creatinine 7.13 H* (0.66-1.25) mg/dL Glucose 108 H (74-99) mg/dL Phosphorus 5.4 H (2.5-4.5) mg/dL Assessment and Plan Plan: Assessment and plan #1 symptoms of progressively worsening shortness of breath over 3 day duration, systolic congestive heart failure acute on chronic #2 chronic persistent atrial fibrillation, not on anticoagulation, patient did have a history of bleeding in the past on Coumadin, he refuses anticoagulation #3 end-stage renal failure on hemodialysis #4 diabetes #5 hypertension #6 hyperlipidemia #7 known history of coronary artery disease stent placement #8 ischemic cardiomyopathy with prior AICD implantation #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 Plan From cardiology's perspective, we will recommend to continue the patient on his current medications. Possible discharge home in 24 hours. DNP note has been reviewed, I agree with a documented findings and plan of care. Patient was seen and examined.
--- NOTE | 2018-06-15 15:33 | P.PN ---
Subjective Progress Note Date: 06/15/18 Principal diagnosis: Hypertension, cardiogenic shock, severe cardiomyopathy and LV dysfunction This is a 78-year-old male patient who got transferred to the intensive care unit as the patient was found to be hypotensive. This patient has an extensive cardiac history. The patient has severe cardiomyopathy which is of an ischemic type and the patient is an ejection fraction of less than 20%. He is known to have coronary artery disease with previous myocardial infarction and stenting last one being in 2002 where the patient underwent stenting of the circumflex and PDA. The patient also has an AICD in place. Other comorbidities include incisional disease and the patient is currently on hemodialysis. He has chronic atrial fibrillation. He has hypertension and diabetes mellitus and hyperlipidemia and COPD. The patient had a episode yesterday on a telemetry unit where he is AICD fires. He was found in polymorphic V. tach and his AICD fired. Subsequently he was started on amiodarone loading. The patient had a drop in her blood pressure and following that the patient had to be moved to the intensive care unit. This morning, the patient is chest pain-free. His cardiac rhythm is paced although is having some ectopies constantly. Amiodarone boluses been completed and the patient is currently on oral amiodarone at a dose of 400 mg by mouth daily. As for the hypotension he was given a bolus of 1 L yesterday and currently is on norepinephrine infusion which is running at 0.04 g per KG per minute. He is awake and alert. Denies having any chest pain. His white cell count is not elevated. He has chronic renal failure and the creatinine is at 3.8. His last session of hemodialysis was yesterday. The patient's chest x-ray from yesterday showed resolution of the previously described vessel congestion and associated edema. Currently is on room air oxygen. Noted the patient also has history of ulcerative colitis. He was seen in consultation by Dr. Prado. The patient has no signs of any GI bleeding at this point. Also, the patient is considering to go to hospice care. He states that he is very much interested in hospice although his other family members including his kids are not shortness of the right thing for him. From my standpoint, the patient's CODE STATUS currently is DNR/DNI. Patient was reevaluated today on 06/14/2018, feeling better, he is off pressors, he is on oral amiodarone, in no distress, no cough no wheezing no shortness of breath no chest pain, no nausea no vomiting no abdominal pain, patient responded well to pressors overnight. Presently asymptomatic and hemodynamically stable. Labs showed relatively normal CBC is relatively normal electrolytes however his BUN is 47 creatinine is 5.65. Significant worsening noted in the last 24 hours. Patient received a total of 1 L of fluid overnight. Presently he has a Hep-Lock. On 06/15/2018 patient seen in follow-up. He is having hemodialysis treatment today, he is resting comfortably in bed, no acute distress, he is on room air, 97%, afebrile, hemodynamically stable. He is awake and alert, oriented 3, lung sounds are diminished, no rhonchi, no wheezing, no rales, today's labs have been reviewed, his renal profile showed BUN of 60, creatinine 7.13. Further episodes of rectal bleeding, no further arrhythmias, it is hemoglobin is 12.6. No fever or chills, no chest pain. Objective - Vital Signs Vital signs: Vital Signs Temp 97.8 F 06/15/18 03:29 Pulse 72 06/15/18 13:20 Resp 16 06/15/18 12:11 BP 100/58 06/15/18 12:11 Pulse Ox 97 06/15/18 12:11 Intake & Output 06/14/18 06/15/18 06/15/18 18:59 06:59 18:59 Intake Total 345 20 240 Output Total 0 Balance 345 20 240 Weight 54.3 kg 53 kg Intake: IV 20 0.9 carrier 20 Oral 345 240 Output: Urine 0 - Exam GENERAL EXAM: Alert, pleasant, 78-year-old white male comfortable in no apparent distress. HEAD: Normocephalic/atraumatic. EYES: Normal reaction of pupils, equal size. Conjunctiva pink, sclera white. NOSE: Clear with pink turbinates. THROAT: No erythema or exudates. NECK: No masses, no JVD, no thyroid enlargement, no adenopathy. CHEST: No chest wall deformity. Symmetrical expansion. LUNGS: Equal air entry with no crackles, wheeze, rhonchi or dullness. CVS: Regular rate and rhythm, normal S1 and S2, no gallops, no murmurs, no rubs ABDOMEN: Soft, nontender. No hepatosplenomegaly, normal bowel sounds, no guarding or rigidity. EXTREMITIES: No clubbing, no edema, no cyanosis, 2+ pulses and upper and lower extremities. MUSCULOSKELETAL: Muscle strength and tone normal. SPINE: No scoliosis or deformity SKIN: No rashes CENTRAL NERVOUS SYSTEM: Alert and oriented -3. No focal deficits, tone is normal in all 4 extremities. PSYCHIATRIC: Alert and oriented -3. Appropriate affect. Intact judgment and insight. - Labs CBC & Chem 7: 06/15/18 05:22 06/15/18 05:22 Labs: Abnormal Lab Results - Last 24 Hours (Table) 06/15/18 06/15/18 Range/Units 05:22 05:22 WBC 12.4 H (3.8-10.6) k/uL RBC 4.13 L (4.30-5.90) m/uL Hgb 12.6 L (13.0-17.5) gm/dL MCV 101.0 H (80.0-100.0) fL MCHC 30.2 L (31.0-37.0) g/dL RDW 15.9 H (11.5-15.5) % Neutrophils # 10.4 H (1.3-7.7) k/uL Lymphocytes # 0.5 L (1.0-4.8) k/uL Chloride 97 L (98-107) mmol/L BUN 60 H (9-20) mg/dL Creatinine 7.13 H* (0.66-1.25) mg/dL Glucose 108 H (74-99) mg/dL Phosphorus 5.4 H (2.5-4.5) mg/dL Assessment and Plan Plan: 1 hypotension secondary to cardiogenic shock responded well to a combination of hydration and vasopressors. 2 severe cardiomyopathy and LV dysfunction. Ejection fraction of 20%. 3 recurrent episodes of ventricular tachycardia, presently on amiodarone, and AICD is in place. 4 end-stage renal disease on hemodialysis 5 history of coronary artery disease and previous coronary intervention/stenting 6 questionable thrombus in left apex 7 recent amputation of right thumb secondary to trauma from a saw, this was done by [facility]. 8 underlying COPD, relatively asymptomatic and presently stable. 9 history of ulcerative colitis and previous anemia related to GI blood losses. Plan: Patient is awake and alert, denies any distress, he is maintaining good oxygenation on room air, vital signs are stable. His been up ambulating in the room, tolerating activity well, no further episodes of GI bleeding. Hemoglobin is stable. No fever or chills, is having hemodialysis treatment today, from pulmonary perspective patient is stable for discharge home, long as he has been cleared by cardiology. I performed a history & physical examination of the patient and discussed their management with my nurse practitioner, Rita Love. I reviewed the nurse practitioner's note and agree with the documented findings and plan of care. Lung sounds are positive for diminished breath sounds. The findings and the impression was discussed with the patient. I attest to the documentation by the nurse practitioner. Time with Patient: Less than 30
--- NOTE | 2018-06-15 19:45 | PN ---
PROGRESS NOTE Patient is seen for followup for end-stage renal disease. Patient was dialyzed today. He did have abdominal cramps towards the end of his treatment. We were only able to remove about 1700 mL. The abdominal pain/cramps eased off once the patient was given some fluid back. On examination today, blood pressure was 100/58, heart rate 72 per minute. He is afebrile. EXAMINATION OF THE HEART: S1, S2. EXAMINATION OF LUNGS: Bilateral breath sounds are heard. ABDOMEN: Soft, non-tender. Examination of lower extremities shows no significant edema. CARDIOLOGY PHYSICIAN ASSISTANT exam is grossly intact. Labs show potassium 4.4, sodium 137, hemoglobin 12.6 g/dL. ASSESSMENT: 1. End-stage renal disease, on hemodialysis on a Thursday, , Thursday schedule, status post hemodialysis today. 2. Volume overload on initial admission, currently improved. Patient will be weighed after dialysis today, as this will be his estimated dry weight, and he will be dialyzed as outpatient based off of this weight. 3. Status post fall and cardiac arrhythmia, currently stable. 4. Severe cardiomyopathy, mainly ischemic, currently stable. 5. Chronic kidney disease mineral bone disorder. 6. Chronic obstructive pulmonary disease. PLAN: Check weight today after dialysis. Patient is stable for discharge from nephrology standpoint. Follow up as outpatient for hemodialysis on . MMODL / IJN: [id number] /
[2018-06-15] MEDS: ATORVASTATIN 40 MG TAB PO SCH (21:21)
[2018-06-15] MEDS: PANTOPRAZOLE 40 MG TABLET PO SCH (21:32)
--- NOTE | 2018-06-15 22:19 | P.PN ---
Subjective Progress Note Date: 06/15/18 Principal diagnosis: Ulcerative colitis, rectal bleeding Patient sitting in bed. Reporting nonbloody bowel movement yesterday, and no bowel movements today. He is tolerating his diet. Objective - Vital Signs Vital signs: Vital Signs Temp 97.3 F L 06/15/18 16:40 Pulse 70 06/15/18 16:40 Resp 16 06/15/18 16:40 BP 88/50 06/15/18 16:40 Pulse Ox 96 06/15/18 16:40 Intake & Output 06/15/18 06/15/18 06/16/18 06:59 18:59 06:59 Intake Total 20 480 240 Balance 20 480 240 Weight 54.3 kg 53 kg Intake: IV 20 0.9 carrier 20 Oral 480 240 - Exam On physical examination, patient appears comfortable in no apparent distress. HEAD: Normocephalic, atraumatic. EYES: No scleral icterus. No conjunctival injection. MOUTH: No lesions, tongue midline. NECK: Trachea midline, no gross abnormalities. CHEST: Decreased air entry in all lung amato. ABDOMEN: Soft, obese. Bowel sounds are positive. No organomegaly. No guarding or rigidity. EXTREMITIES: No pedal edema. SKIN: No rashes, no jaundice. NEUROLOGIC: Alert and oriented x3. No focal deficits. - Labs CBC & Chem 7: 06/15/18 05:22 06/15/18 05:22 Labs: Abnormal Lab Results - Last 24 Hours (Table) 06/15/18 06/15/18 Range/Units 05:22 05:22 WBC 12.4 H (3.8-10.6) k/uL RBC 4.13 L (4.30-5.90) m/uL Hgb 12.6 L (13.0-17.5) gm/dL MCV 101.0 H (80.0-100.0) fL MCHC 30.2 L (31.0-37.0) g/dL RDW 15.9 H (11.5-15.5) % Neutrophils # 10.4 H (1.3-7.7) k/uL Lymphocytes # 0.5 L (1.0-4.8) k/uL Chloride 97 L (98-107) mmol/L BUN 60 H (9-20) mg/dL Creatinine 7.13 H* (0.66-1.25) mg/dL Glucose 108 H (74-99) mg/dL Phosphorus 5.4 H (2.5-4.5) mg/dL Assessment and Plan (1) Ulcerative colitis Narrative/Plan: Patient seen today setting bedside. He reports a history of ulcerative colitis maintained on oral 5ASA agent. He had 2 episodes of dark bloody bowel movement while in the hospital, however this is subsequently resolved with the patient reporting bowel movements yesterday. Hemoglobin is stable. Current Visit: Yes Status: Acute Code(s): K51.90 - ULCERATIVE COLITIS, UNSPECIFIED, WITHOUT COMPLICATIONS SNOMED Code(s): 79342948 Plan: Supportive care Okay for diet Monitor hemoglobin and transfuse as needed Monitor stool output Continue balsalazide Patient reports last colonoscopy approximately 4-5 years ago, no further episodes of rectal bleeding reported, no plans for endoscopy evaluation at this time the patient has further worrisome symptoms or fall in hemoglobin we'll consider further evaluation Thank you for allowing us to participate in the care of this patient the gastroenterology service will stand by, please call us back with any questions or concerns
[2018-06-16 06:00] LABS: Anisocytosis Slight; HCT 42.8 % (39.0-53.0); HGB 13.3 gm/dL (13.0-17.5); Hypochromasia Slight; MCH 31.9 pg (25.0-35.0); MCHC 31.1 g/dL (31.0-37.0); MCV 102.7 fL (80.0-100.0); Macrocytosis Slight; Mean Platelet Volume 6.9; Platelet Count 185 k/uL (150-450); RBC 4.17 m/uL (4.30-5.90); RDW 16.2 % (11.5-15.5); WBC 9.9 k/uL (3.8-10.6)
[2018-06-16 06:18] LABS: Calcium 8.9 mg/dL (8.4-10.2); Potassium 4.2 mmol/L (3.5-5.1)
[2018-06-16] MEDS: MIDODRINE 5 MG TAB PO SCH ×2 (06:37→12:40)
[2018-06-16] MEDS: BALSALAZIDE DISODIUM 750 MG CAPSULE PO SCH ×2 (06:38→12:43)
[2018-06-16] MEDS: IPRATROPIUM-ALBUTEROL 3 ML NEB INHALATION SCH (07:55)
[2018-06-16] MEDS: SYMBICORT 160-4.5 MCG INHALER INHALATION SCH (07:55)
[2018-06-16 07:56] VITALS: TEMP 98
[2018-06-16] MEDS: CALCIUM CARB-VIT D 500MG-200UN 1 EACH TAB PO SCH (08:58)
[2018-06-16] MEDS: VIT A,C & E-LUTEIN-MINERALS 1 EACH TAB PO SCH (08:58)
[2018-06-16] MEDS: CLOPIDOGREL 75 MG TAB PO SCH (08:58)
[2018-06-16] MEDS: ALLOPURINOL 100 MG TAB PO SCH (08:58)
[2018-06-16] MEDS: METOPROLOL TARTRATE 12.5 MG TAB PO SCH (08:58)
[2018-06-16] MEDS: ASPIRIN 81 MG PO SCH (08:58)
[2018-06-16] MEDS: AMIODARONE 200 MG TAB PO SCH (08:58)
[2018-06-16] MEDS: DICYCLOMINE 10 MG CAP PO SCH (08:58)
[2018-06-16] MEDS: EZETIMIBE 10 MG TAB PO SCH (08:58)
--- NOTE | 2018-06-16 12:03 | P.PN ---
Subjective Progress Note Date: 06/16/18 Principal diagnosis: Hypertension, cardiogenic shock, severe cardiomyopathy and LV dysfunction This is a 78-year-old male patient who got transferred to the intensive care unit as the patient was found to be hypotensive. This patient has an extensive cardiac history. The patient has severe cardiomyopathy which is of an ischemic type and the patient is an ejection fraction of less than 20%. He is known to have coronary artery disease with previous myocardial infarction and stenting last one being in 2002 where the patient underwent stenting of the circumflex and PDA. The patient also has an AICD in place. Other comorbidities include incisional disease and the patient is currently on hemodialysis. He has chronic atrial fibrillation. He has hypertension and diabetes mellitus and hyperlipidemia and COPD. The patient had a episode yesterday on a telemetry unit where he is AICD fires. He was found in polymorphic V. tach and his AICD fired. Subsequently he was started on amiodarone loading. The patient had a drop in her blood pressure and following that the patient had to be moved to the intensive care unit. This morning, the patient is chest pain-free. His cardiac rhythm is paced although is having some ectopies constantly. Amiodarone boluses been completed and the patient is currently on oral amiodarone at a dose of 400 mg by mouth daily. As for the hypotension he was given a bolus of 1 L yesterday and currently is on norepinephrine infusion which is running at 0.04 g per KG per minute. He is awake and alert. Denies having any chest pain. His white cell count is not elevated. He has chronic renal failure and the creatinine is at 3.8. His last session of hemodialysis was yesterday. The patient's chest x-ray from yesterday showed resolution of the previously described vessel congestion and associated edema. Currently is on room air oxygen. Noted the patient also has history of ulcerative colitis. He was seen in consultation by Dr. Prado. The patient has no signs of any GI bleeding at this point. Also, the patient is considering to go to hospice care. He states that he is very much interested in hospice although his other family members including his kids are not shortness of the right thing for him. From my standpoint, the patient's CODE STATUS currently is DNR/DNI. Patient was reevaluated today on 06/14/2018, feeling better, he is off pressors, he is on oral amiodarone, in no distress, no cough no wheezing no shortness of breath no chest pain, no nausea no vomiting no abdominal pain, patient responded well to pressors overnight. Presently asymptomatic and hemodynamically stable. Labs showed relatively normal CBC is relatively normal electrolytes however his BUN is 47 creatinine is 5.65. Significant worsening noted in the last 24 hours. Patient received a total of 1 L of fluid overnight. Presently he has a Hep-Lock. On 06/15/2018 patient seen in follow-up. He is having hemodialysis treatment today, he is resting comfortably in bed, no acute distress, he is on room air, 97%, afebrile, hemodynamically stable. He is awake and alert, oriented 3, lung sounds are diminished, no rhonchi, no wheezing, no rales, today's labs have been reviewed, his renal profile showed BUN of 60, creatinine 7.13. Further episodes of rectal bleeding, no further arrhythmias, it is hemoglobin is 12.6. No fever or chills, no chest pain. On 06/16/2018 patient seen in follow-up on [facility] care unit. Resting quite comfortably in bed, no acute distress, he is on room air, his pulse ox is 99%. Yesterday he had a hemodialysis treatment, on today's exam lung sounds are positive for some bibasilar crackles, no wheezing, no rhonchi, no chest congestion. No fever or chills. Blood pressure is 81/50, patient is asymptomatic, today's labs have been reviewed, blood cell count is 9.9, hemoglobin is 13.3, electrolytes are unremarkable, BUN is down to 34, and creatinine is 4.92. Patient has been cleared for discharge by cardiology, he is stable for discharge from our standpoint as well. We will resume his hemodialysis on an outpatient basis. Acute events overnight. No further arrhythmias or AICD discharges. Objective - Vital Signs Vital signs: Vital Signs Temp 98 F 06/16/18 07:54 Pulse 72 06/16/18 08:07 Resp 18 06/16/18 08:00 BP 81/50 06/16/18 07:54 Pulse Ox 99 06/16/18 07:54 Intake & Output 06/15/18 06/16/18 06/16/18 18:59 06:59 18:59 Intake Total 480 480 240 Balance 480 480 240 Weight 53 kg 53.6 kg Intake: IV 0 0.9 carrier 0 Oral 480 480 240 Other: # Voids 1 - Exam GENERAL EXAM: Alert, pleasant, 78-year-old white male comfortable in no apparent distress. HEAD: Normocephalic/atraumatic. EYES: Normal reaction of pupils, equal size. Conjunctiva pink, sclera white. NOSE: Clear with pink turbinates. THROAT: No erythema or exudates. NECK: No masses, no JVD, no thyroid enlargement, no adenopathy. CHEST: No chest wall deformity. Symmetrical expansion. LUNGS: Equal air entry with no crackles, wheeze, rhonchi or dullness. CVS: Regular rate and rhythm, normal S1 and S2, no gallops, no murmurs, no rubs ABDOMEN: Soft, nontender. No hepatosplenomegaly, normal bowel sounds, no guarding or rigidity. EXTREMITIES: No clubbing, no edema, no cyanosis, 2+ pulses and upper and lower extremities. MUSCULOSKELETAL: Muscle strength and tone normal. SPINE: No scoliosis or deformity SKIN: No rashes CENTRAL NERVOUS SYSTEM: Alert and oriented -3. No focal deficits, tone is normal in all 4 extremities. PSYCHIATRIC: Alert and oriented -3. Appropriate affect. Intact judgment and insight. - Labs CBC & Chem 7: 06/16/18 05:18 06/16/18 05:18 Labs: Abnormal Lab Results - Last 24 Hours (Table) 06/16/18 06/16/18 Range/Units 05:18 05:18 RBC 4.17 L (4.30-5.90) m/uL MCV 102.7 H (80.0-100.0) fL RDW 16.2 H (11.5-15.5) % Chloride 97 L (98-107) mmol/L BUN 34 H (9-20) mg/dL Creatinine 4.92 H (0.66-1.25) mg/dL Glucose 109 H (74-99) mg/dL Phosphorus 5.0 H (2.5-4.5) mg/dL Assessment and Plan Plan: 1 hypotension secondary to cardiogenic shock responded well to a combination of hydration and vasopressors. 2 severe cardiomyopathy and LV dysfunction. Ejection fraction of 20%. 3 recurrent episodes of ventricular tachycardia, presently on amiodarone, and AICD is in place. 4 end-stage renal disease on hemodialysis 5 history of coronary artery disease and previous coronary intervention/stenting 6 questionable thrombus in left apex 7 recent amputation of right thumb secondary to trauma from a saw, this was done by [facility]. 8 underlying COPD, relatively asymptomatic and presently stable. 9 history of ulcerative colitis and previous anemia related to GI blood losses. Plan: Patient is doing well, no acute events overnight, no worsening dyspnea, no chest pain, no arrhythmia or AICD discharge. No further rectal bleeding, hemoglobin is stable. Patient is clear for discharge from pulmonary perspective. I performed a history & physical examination of the patient and discussed their management with my nurse practitioner, Rita Love. I reviewed the nurse practitioner's note and agree with the documented findings and plan of care. Lung sounds are positive for diminished breath sounds. The findings and the impression was discussed with the patient. I attest to the documentation by the nurse practitioner. Time with Patient: Less than 30
[2018-06-16 12:46] VITALS: BP 92/50; PULSE 68; RESP 16
--- NOTE | 2018-06-16 13:58 | PN ---
PROGRESS NOTE Patient is seen for followup for end-stage renal disease. He was dialyzed yesterday. Patient had abdominal cramps toward the end of dialysis, and he had some fluids given back which relieved his symptoms. He is going home today. PHYSICAL EXAMINATION: Blood pressure was 92/50, heart rate is 72 per minute. Patient is afebrile. Examination of the heart, S1, S2. Examination of the lungs, bilateral breath sounds are heard. Abdomen is soft, nontender. Examination of the lower extremities shows no evidence of edema. VP CONSTRUCTION exam is grossly intact. LABS: Show a hemoglobin of 13.3. Potassium was 4.2. ASSESSMENT: 1. End-stage renal disease, on hemodialysis on a Thursday, , Thursday schedule at [place]. 2. Mild volume overload, currently improved. 3. Episode of cardiac arrhythmia and fall in the bathroom during hospitalization, currently improved. 4. CKD mineral bone disorder. 5. Chronic persistent atrial fibrillation, currently not on anticoagulation. 6. Ischemic cardiomyopathy with prior AICD implantation. 7. Recent amputation of right thumb. PLAN: Hemodialysis in a.m. as outpatient. Patient's dry weight was given to him after dialysis yesterday and he his treatments will be based off of that dry weight. MMODL / IJN: [id number] /
--- NOTE | 2018-06-16 15:30 | P.PN ---
Subjective Progress Note Date: 06/16/18 This is a pleasant 78-year-old gentleman who follows regularly with Dr. Negron in the office. He has a known history of coronary artery disease with prior myocardial infarction and stenting of the circumflex and PDA in 2002. Patient also has known history of ischemic cardiomyopathy with prior AICD implantation, hypertension, diabetes, atrial fibrillation, hyperlipidemia, end-stage renal disease on hemodialysis. The patient was transferred here from [facility]. According to the patient, he's been getting progressively more and more weak, his appetite has been extremely poor. Over the past few days, patient states that he's been noticing himself to be more short of breath than usual and he feels congested in his chest. He does state that a few days ago he had some intermittent chest discomfort off and on. His main complaint however is his progressive weakness. He presented to [facility], laboratory data performed there showed a white blood cell count is 7.3, hemoglobin 14, hematocrit 45, platelet count 126. Sodium 142, potassium 4.6, BNP level 141,000, BUN 26, creatinine 3.9, troponin 0.3 chest x-ray was also performed there which showed pulmonary vascular congestion likely related to decompensated congestive heart failure. Patient does currently have a soft cast in place to his right wrist, he states that he was using his soft just around Thanksgiving time when he cut off a large section of his right thumb, he did recently undergo amputation of the thumb by Dr. Whaley. EKG performed at [facility] shows atrial fibrillation with nonspecific ST-T wave changes. Because of the abnormality in the BNP level in troponin patient was advised transfer here for further treatment. Blood pressure here 90/60, heart rate in the 90s, 92% on room air. Repeat troponins were performed here, 0.5 and 0.4. At the time of my examination this morning, patient is comfortable, sitting at the edge of his bed, denies any chest discomfort, still complains of some shortness of breath. Very weak. 06/10/2018 Patient seen and examined this morning, feels much more weeks today, much more short of breath. He does have wishes to be a DO NOT RESUSCITATE is reflected in his chart. He did undergo dialysis today, they removed 3 L. Blood pressure 90/50 with a heart rate in the 80s, 93% on room air. White blood cell count 9.4 , hemoglobin 13.2, platelet count 176. Sodium 138, potassium 4.7, BUN 71 and creatinine 6.2. 06/15/2018 Patient was seen and examined this morning, no further ectopy was noted on the monitor. Underwent dialysis this morning. Blood pressure 100/50 with a heart rate in the 60s, 97% on room air. 06/16/2018 Patient was seen and examined this morning, no ectopy noted. Blood pressure 92/ 50 with a heart rate in the 60s, 96% on room air. Objective - Vital Signs Vital signs: Vital Signs Temp 98 F 06/16/18 07:54 Pulse 68 06/16/18 12:00 Resp 16 06/16/18 12:00 BP 92/50 06/16/18 12:00 Pulse Ox 96 06/16/18 12:00 Intake & Output 06/15/18 06/16/18 06/16/18 18:59 06:59 18:59 Intake Total 480 480 600 Balance 480 480 600 Weight 53 kg 53.6 kg Intake: IV 0 0.9 carrier 0 Oral 480 480 600 Other: # Voids 1 - Exam PHYSICAL EXAMINATION: GENERAL: 78-year-old gentleman in no acute distress at the time of my examination HEENT: Head is atraumatic, normocephalic. Pupils equal, round. Sclera anicteric. Conjunctiva are clear. Mucous membranes of the mouth are moist. Neck is supple. There is no elevated jugular venous pressure. No carotid bruit is heard. HEART EXAMINATION: Heart S1 and S2 irregularly irregular CHEST EXAMINATION: Lungs reveal diminished air entry to bilateral bases. ABDOMEN: Soft, nontender. Bowel sounds are heard. No organomegaly noted. EXTREMITIES: 1+ peripheral pulses with no evidence of peripheral edema and no calf tenderness noted. Soft cast is present on right wrist NEUROLOGIC patient is awake, alert and oriented 3 . - Labs CBC & Chem 7: 06/16/18 05:18 06/16/18 05:18 Labs: Abnormal Lab Results - Last 24 Hours (Table) 06/16/18 06/16/18 Range/Units 05:18 05:18 RBC 4.17 L (4.30-5.90) m/uL MCV 102.7 H (80.0-100.0) fL RDW 16.2 H (11.5-15.5) % Chloride 97 L (98-107) mmol/L BUN 34 H (9-20) mg/dL Creatinine 4.92 H (0.66-1.25) mg/dL Glucose 109 H (74-99) mg/dL Phosphorus 5.0 H (2.5-4.5) mg/dL Assessment and Plan Plan: Assessment and plan #1 symptoms of progressively worsening shortness of breath over 3 day duration, systolic congestive heart failure acute on chronic #2 chronic persistent atrial fibrillation, not on anticoagulation, patient did have a history of bleeding in the past on Coumadin, he refuses anticoagulation #3 end-stage renal failure on hemodialysis #4 diabetes #5 hypertension #6 hyperlipidemia #7 known history of coronary artery disease stent placement #8 ischemic cardiomyopathy with prior AICD implantation #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 Plan From cardiology's perspective, we will recommend to continue the patient on his current medications. He may be discharged home once cleared by primary. We'll make him a follow-up appointment in the office post discharge. DNP note has been reviewed, I agree with a documented findings and plan of care. Patient was seen and examined.
== END 2018-06-16 15:48 | disposition home health service (06) | DRG 291 ==
LOC: EC 17:13 → 3SCARD 18:30 → 2SICU 06-12 22:53 → 3SCARD 06-14 14:20
PROVIDERS: ADMIT Internal Medicine; ATTEND Internal Medicine
PROC: 5A1D70Z Performance of Urinary Filtration, Intermittent, Less than 6 Hours Per Day (ICD-10-PCS; principal; 2018-06-12)
DX: I13.2 Hypertensive heart and chronic kidney disease with heart failure and with stage 5 chronic kidney disease, or end stage renal disease (principal); N18.6 End stage renal disease; R57.0 Cardiogenic shock; I49.01 Ventricular fibrillation; I50.22 Chronic systolic (congestive) heart failure; I48.1 Persistent atrial fibrillation; I47.2 Ventricular tachycardia; I25.10 Atherosclerotic heart disease of native coronary artery without angina pectoris; M89.9 Disorder of bone, unspecified; M1A.9XX0 Chronic gout, unspecified, without tophus (tophi); M19.91 Primary osteoarthritis, unspecified site; J44.9 Chronic obstructive pulmonary disease, unspecified; K21.9 Gastro-esophageal reflux disease without esophagitis; I95.89 Other hypotension; I25.5 Ischemic cardiomyopathy; E11.22 Type 2 diabetes mellitus with diabetic chronic kidney disease; E11.42 Type 2 diabetes mellitus with diabetic polyneuropathy; H35.30 Unspecified macular degeneration; E78.5 Hyperlipidemia, unspecified; E11.51 Type 2 diabetes mellitus with diabetic peripheral angiopathy without gangrene; E86.1 Hypovolemia; E87.5 Hyperkalemia; F41.9 Anxiety disorder, unspecified; G89.29 Other chronic pain; I07.1 Rheumatic tricuspid insufficiency; I27.20 Pulmonary hypertension, unspecified; N40.0 Benign prostatic hyperplasia without lower urinary tract symptoms; Z96.652 Presence of left artificial knee joint; Z99.2 Dependence on renal dialysis; Z66 Do not resuscitate; Z95.810 Presence of automatic (implantable) cardiac defibrillator; Z95.5 Presence of coronary angioplasty implant and graft; Z87.891 Personal history of nicotine dependence; Z85.828 Personal history of other malignant neoplasm of skin; Z83.3 Family history of diabetes mellitus; Z82.49 Family history of ischemic heart disease and other diseases of the circulatory system; Z79.899 Other long term (current) drug therapy; Z79.82 Long term (current) use of aspirin; Z79.02 Long term (current) use of antithrombotics/antiplatelets; I25.2 Old myocardial infarction; W19.XXXA Unspecified fall, initial encounter; Y92.231 Patient bathroom in hospital as the place of occurrence of the external cause
CPT/HCPCS: 71045; 80048; 80061; 82533; 83735; 84100; 84484; 85025; 85027; 85730; 90935; 93005; 93306; 94640; 94760; 96365; 96366; 96375; 99285